=== PATIENT | male | born 1945 | race Caucasian/White ===

== ENCOUNTER 2019-09-28 08:08 | Outpatient (CLI) | payer OTHER, SELFPAY ==
--- NOTE | 2019-09-28 08:22 | MM_ITS ---
WS: [id number] BILATERAL DIGITAL DIAGNOSTIC MAMMOGRAM MAMMOGRAPHY WITH CAD CLINICAL INFORMATION: LAKHWINDER BREAST NODULES COMPARISON: None. TECHNIQUE: Bilateral CC, MLO, and ML views. FINDINGS: Scattered fibroglandular tissue bilaterally. Symmetric appearing parenchymal tissue in both periareol a regions. Ultrasound is pending. ULTRASOUND BREAST BILATERAL TECHNIQUE: Ultrasound bilateral breast focused area of concern. CLINICAL INFORMATION: LAKHWINDER BREAST NODULES COMPARISON: None. FINDINGS: Ultrasound both area lateral regions. Bilateral symmetric appearing breast tissue consistent with mil d gynecomastia. No evidence of focal cystic or solid lesion. No pathologic lesions to target for biop sy. MM/[id number] IMPRESSION: BI-RADS: 2-Benign FOLLOW UP: See Report Additional management of the palpable abnormality should be based on clinical g rounds.
== END 2019-09-28 08:09 | disposition home or self-care (01) ==
LOC: RADSHAW 08:08
PROVIDERS: Family Provider Internal Medicine; PCP Internal Medicine; Visit Provider Internal Medicine
DX: N63.20 Unspecified lump in the left breast, unspecified quadrant (principal); N63.10 Unspecified lump in the right breast, unspecified quadrant
CPT/HCPCS: 76641; 77066

== ENCOUNTER 2021-01-23 20:00 | Outpatient (CLI) | payer OTHER, SELFPAY | END 2021-01-23 20:01 | disposition home or self-care (01) | LOC: SLEEP 01-24 08:50 | PROVIDERS: Family Provider Internal Medicine; PCP Internal Medicine; Visit Provider Family Medicine | DX: G47.33 Obstructive sleep apnea (adult) (pediatric) (principal) | CPT/HCPCS: 95810 ==

== ENCOUNTER 2021-09-02 20:00 | Outpatient (CLI) | payer OTHER, SELFPAY | END 2021-09-02 20:01 | disposition home or self-care (01) | LOC: SLEEP 09-03 08:44 | PROVIDERS: Family Provider Internal Medicine; PCP Internal Medicine; Visit Provider Family Medicine | DX: G47.33 Obstructive sleep apnea (adult) (pediatric) (principal) | CPT/HCPCS: 95811 ==

== ENCOUNTER 2021-09-10 13:07 | Outpatient (CLI) | payer OTHER, SELFPAY ==
--- NOTE | 2021-09-10 13:28 | MM_ITS ---
WS: [id number] BILATERAL DIGITAL DIAGNOSTIC MAMMOGRAM MAMMOGRAPHY WITH CAD CLINICAL INFORMATION: LT BREAST GYNECOMASTIA COMPARISON: September 28, 2019 TECHNIQUE: Bilateral CC, MLO, and ML views. FINDINGS: Scattered fibroglandular densities bilaterally. Bilateral palpable markers. Normal appearing breast t issue in the areas of palpable concern. Bilateral gynecomastia. Ultrasound is pending. ULTRASOUND BREAST BILATERAL TECHNIQUE: Ultrasound bilateral breast focused area of concern. CLINICAL INFORMATION: LT BREAST GYNECOMASTIA FINDINGS: Ultrasound right breast at the 10:00 and 1:00 positions and left breast at the 9:00, 10:00, and 1:00 positions in the areas of concern. Dense underlying breast tissue in the areas of concern. Dense suba reola breast tissue left greater than right compatible with gynecomastia. No cystic or solid lesions to target for biopsy. No other suspicious findings. MM/[id number] IMPRESSION: BI-RADS: 2-Benign FOLLOW UP: See Report
== END 2021-09-10 13:08 | disposition home or self-care (01) ==
PROVIDERS: PCP Internal Medicine; Visit Provider Family Medicine
DX: N62 Hypertrophy of breast (principal)
CPT/HCPCS: 76642; 77066

== ENCOUNTER 2021-12-17 07:36 | Emergency (ER) | payer OTHER, MEDICARE, SELFPAY ==
[2021-12-17] VITALS (11 sets, daily range): BP systolic 149–177; BP diastolic 96–120; PULSE 67–108; RESP 12–20; TEMP 36.7; O2SAT 89–96; BMI 30.7
--- NOTE | 2021-12-17 08:19 | ECG_ITS ---
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 Measurements Intervals [place] Rate: 94 P: UT: QRS: 63 QRSD: 88 T: 222 QT: 368 QTc: 460 Interpretive Statements ATRIAL FIBRILLATION ST DEVIATION AND MODERATE T-WAVE ABNORMALITY, CONSIDER LATERAL ISCHEMIA [-0.1+ mV T-WAVE IN I/aVL/V5/V6] ST DEVIATION AND MODERATE T-WAVE ABNORMALITY, CONSIDER INFERIOR ISCHEMIA [-0.1+ mV T-WAVE IN II/aVF] Compared to ECG 04/04/2019 16:16:48 Possible ischemia now present T-wave abnormality still present Electronically Signed On 12-17-2021 18:26:15 CDT by Janis Delacruz M.D. [id number]
--- NOTE | 2021-12-17 08:19 | CT_ITS ---
WS: [id number] CTA HEAD AND NECK TECHNIQUE: Contrast enhanced CTA of the head and neck with coronal and sagittal reformatted images an d maximum intensity projection (MIP) images. NASCET criteria utilized. CLINICAL INFORMATION: CVA COMPARISON: None. DLP: 2738.[address] scans at [facility] use at least one of these dose optimization techniques: automated e xposure control; mA and/or kV adjustment per patient size (includes targeted exams where dose is matc hed to clinical indication); or iterative reconstruction. FINDINGS: RIGHT: RIGHT common carotid artery is patent. Mild calcified atheromatous disease RIGHT carotid bulb extending into the ICA. No significant RIGHT ICA stenosis. RIGHT ICA is patent to the skull base.Retr opharyngeal course RIGHT cervical ICA. LEFT: LEFT common carotid artery is patent. Moderate calcified atheromatous disease LEFT carotid bulb extending into the ICA with less than 50% LEFT ICA stenosis. LEFT ICA is patent to the skull base. INTRACRANIAL CTA: LEFT dominant vertebral artery. Both vertebral arteries are patent. Vertebral arteries are patent to the vertebrobasilar junction. Both ICAs are patent at the skull base. Moderate calcified atheromatous disease. Normal vascularity t o the ROSA ISELA and MCA territories bilaterally. No evidence of flow-limiting stenosis. Basilar artery is p atent. Normal vascularity to the ORCHARD WORKER territory bilaterally. Moderate aortic arch atheromatous disease. Prior sternotomy. Advanced emphysematous changes in the mariely ng apices. Normal visualized dural venous sinuses. No cervical lymphadenopathy. Mild mucosal thickening ethmoid air cells. Mastoid air cells well aerated. Normal posterior nasophary nx. Normal parapharyngeal fat. CT/CT angio headneck* [id number] IMPRESSION: 1. No significant RIGHT ICA stenosis. Less than 50% LEFT ICA stenosis with mil d to moderate calcified atheromatous disease. 2. No intracranial flow limiting stenosis. 3. LEFT dominant vertebral artery. 4. Both vertebral arteries are patent. 5. No other acute findings.
--- NOTE | 2021-12-17 08:23 | CT_ITS ---
WS: [id number] CT HEAD TECHNIQUE: Noncontrast CT of the head obtained from the skullbase to the vertex. CLINICAL INFORMATION: weakness COMPARISON: None. DLP: 1009.[address] scans at [facility] use at least one of these dose optimization techniques: automated e xposure control; mA and/or kV adjustment per patient size (includes targeted exams where dose is matc hed to clinical indication); or iterative reconstruction. FINDINGS: No evidence of intracranial hemorrhage or mass effect. Ventricular system and basal cisterns are cruz nt. Moderate small vessel changes with moderate parenchymal volume loss. Chronic lacunar infarct RIGH T lateral basal ganglia. No extra-axial fluid collections. No evidence of mass or mass effect. Intrac ranial vascular calcification. Paranasal sinuses and mastoid air cells are well aerated. .Normal visualized soft tissues. CT/CT head wo con* [id number] IMPRESSION: 1. No evidence of intracranial hemorrhage or mass effect. 2. Moderate small vessel changes. Moderate parenchymal volume loss. 3. No acute intracranial findings.
--- NOTE | 2021-12-17 08:25 | ED_ITS ---
HPI - Weakness General: Chief complaint: Weakness Stated complaint: confusion/issues talking/body numbness Time Seen by Provider: 12/17/21 08:19 History of Present Illness: 76-year-old male presents due to generalized weakness. States upon waking up he had weakness all over his body improved within several minutes. Denies any previous episodes of weakness or sleep paralysis. Denies any headache. Denies any injury. Currently symptom-free denies any focal numbness weakness tingling vision change or hearing change. Denies vertigo. Denies loss of consciousness. Review of Systems Narrative: - CONSTITUTIONAL: Denies weight loss, fever and chills. - HEENT: Denies changes in vision and hearing. - RESPIRATORY: Denies SOB and cough. - CV: Denies palpitations and CP. - GI: Denies abdominal pain, nausea, vomiting and diarrhea. - : Denies dysuria and urinary frequency. - MSK: Denies myalgia and joint pain. - SKIN: Denies rash and pruritus. - NEUROLOGICAL: As above - PSYCHIATRIC: Denies suicidal ideation Physical Exam Narrative: EXAM NARRATIVE: - GENERAL: Alert and oriented x 3. No acute distress. Well-nourished. - EYES: EOMI. Anicteric. - HENT: Atraumatic, no C-spine tenderness. Moist mucous membranes. No scleral icterus. No cervical lymphadenopathy. - LUNGS: Clear to auscultation bilaterally. No accessory muscle use. Equal lung sounds bilaterally. No respiratory distress. - CARDIOVASCULAR: Regular rate and rhythm. No murmur. No JVD. - ABDOMEN: Soft, non-tender and non-distended. Negative CVA tenderness bilaterally, no rebound or guarding, negative Rogers sign. No palpable masses. - EXTREMITIES: No edema. Non-tender. - SKIN: No rashes or lesions. Warm. - NEUROLOGIC: No meningismus or focal neurological deficits. CN II-XII grossly intact. - PSYCHIATRIC: Cooperative. Appropriate mood and affect. Course Vital Signs: Vital signs: Vital Signs Temperature 98.0 F 12/17/21 08:17 Pulse Rate 85 12/17/21 11:00 Respiratory Rate 17 12/17/21 11:00 Blood Pressure 154/107 12/17/21 11:00 Pulse Oximetry 89 L 12/17/21 11:01 MDM - Weakness Medical Decision Making 76-year-old presents with diffuse weakness. States this is resolved by the time of presentation. Nonfocal neurologic exam here. CT scan of the head does not reveal any cranial hemorrhage or other acute abnormality. CTA does not reveal any large arterial occlusion. Discussed with neurology at this time do not bel ieve admission is required for MRI and that he would be safe for outpatient follow-up. Lab work does reveal significantly elevated TSH level and low free T4. Suspect hypothyroid state. However did not see any sign of myxedema coma. Prescription for levothyroxine provided. Remainder of lab work unremarkable. EKG and troponin not revealing sign of acute ischemia or other acute abnormality. Patient was also noted to be saturating 88 to 90% when sleeping but saturates well on room air when awake. States that he is on home BiPAP when he sleeps. At this time I believe patient would be safe for discharge and outpatient follow-up. Return precautions provided. Plan was reviewed with the patient who expressed understanding. Questions answered. Patient will follow up with PCP. Patient discharged in stable condition. Lab Data : 12/17/21 09:05 12/17/21 09:05 Radiology Impressions Head/Neck CTA 12/17/21 08:19 IMPRESSION: 1. No significant RIGHT ICA stenosis. Less than 50% LEFT ICA stenosis with mild to moderate calcified atheromatous disease. 2. No intracranial flow limiting stenosis. 3. LEFT dominant vertebral artery. 4. Both vertebral arteries are patent. 5. No other acute findings. Head CT 12/17/21 08:23 IMPRESSION: 1. No evidence of intracranial hemorrhage or mass effect. 2. Moderate small vessel changes. Moderate parenchymal volume loss. 3. No acute intracranial findings. Laboratory Results WBC 6.5 10^3/uL (4.0-10.0) 12/17/21 09:05 RBC 3.97 10^6/uL (4.1-5.3) L 12/17/21 09:05 Hgb 14.1 g/dL (11.7-16.6) 12/17/21 09:05 Hct 41.2 % (42.0-52.0) L 12/17/21 09:05 MCV 103.8 fl (80-94) H 12/17/21 09:05 MCH 35.5 pg (28.0-34.0) H 12/17/21 09:05 MCHC 34.2 g/dL (30.0-36.0) 12/17/21 09:05 RDW 12.7 % (12.1-15.1) 12/17/21 09:05 Plt Count 181 10^3/cmm (130-400) 12/17/21 09:05 MPV 10.6 fL (7.4-10.4) H 12/17/21 09:05 Neut % (Auto) 60.1 % 12/17/21 09:05 Lymph % (Auto) 25.7 % 12/17/21 09:05 [place] % (Auto) 7.8 % 12/17/21 09:05 Eos % (Auto) 4.9 % 12/17/21 09:05 Baso % (Auto) 0.9 % 12/17/21 09:05 Neut # (Auto) 3.92 10^3/uL (1.8-7.7) 12/17/21 09:05 Lymph # (Auto) 1.7 10^3/uL (0.8-4.8) 12/17/21 09:05 [place] # (Auto) 0.5 10^3/uL (0.2-0.9) 12/17/21 09:05 Eos # (Auto) 0.3 10^3/uL (0.0-0.8) 12/17/21 09:05 Baso # (Auto) 0.1 10^3/uL (0.0-0.1) 12/17/21 09:05 Nucleated RBC % (auto) 0 % 12/17/21 09:05 Nucleated RBCs # 0.0 /100WBC 12/17/21 09:05 Sodium 138 mmol/L (136-145) 12/17/21 09:05 Potassium 3.9 mmol/L (3.5-5.1) 12/17/21 09:05 Chloride 97 mmol/L (98-107) L 12/17/21 09:05 Carbon Dioxide 29 mmol/L (22-29) 12/17/21 09:05 Anion Gap 15.9 (5-19) 12/17/21 09:05 BUN 15 mg/dL (8-23) 12/17/21 09:05 Creatinine 1.1 mg/dL (0.7-1.2) 12/17/21 09:05 GFR Calculation Not Reportable 12/17/21 09:05 Glucose 265 mg/dL (65-115) H 12/17/21 09:05 Calculated Osmolality 296 mOsm/kg (285-295) H 12/17/21 09:05 Calcium 10.2 mg/dL (8.5-10.5) 12/17/21 09:05 Total Bilirubin 0.5 mg/dL (0.15-1.2) 12/17/21 09:05 AST 21 U/L (0-40) 12/17/21 09:05 ALT 17 U/L (0-41) 12/17/21 09:05 Alkaline Phosphatase 112 IU/L (40-130) 12/17/21 09:05 Total Protein 7.0 g/dL (6.6-8.7) 12/17/21 09:05 Albumin 4.5 g/dL (3.5-5.2) 12/17/21 09:05 Globulin 2.5 g/dL (1.3-4.6) 12/17/21 09:05 TSH 91.44 uIU/mL (0.27-4.20) H 12/17/21 09:05 Free T4 0.10 ng/dL (0.82-1.77) L 12/17/21 09:05 Urine Color Straw (Yellow) 12/17/21 08:55 Urine Appearance Clear (CLEAR) 12/17/21 08:55 Urine pH 6 (5-7) 12/17/21 08:55 Ur Specific [place] 1.015 (1.005-1.030) 12/17/21 08:55 Urine Protein Trace (Negative) 12/17/21 08:55 Urine Glucose (UA) 1+ (Normal) H 12/17/21 08:55 Urine Ketones Negative (Negative) 12/17/21 08:55 Urine Blood Neg (Negative) 12/17/21 08:55 Urine Nitrate Negative (Negative) 12/17/21 08:55 Urine Bilirubin Neg (Negative) 12/17/21 08:55 Urine Urobilinogen Norm mg/dL (Negative) 12/17/21 08:55 Ur Leukocyte Esterase Negative (Negative) 12/17/21 08:55 Urine RBC None /hpf (0-2) 12/17/21 08:55 Urine WBC Rare /hpf (0-5) 12/17/21 08:55 Ur Squamous Epith Cells Rare /hpf (0-5) 12/17/21 08:55 Amorphous Sediment Not Reportable 12/17/21 08:55 Urine Bacteria None /hpf (NONE) 12/17/21 08:55 EKG Data EKG 1: Other EKG comments: A. fib, controlled rate of 94, T wave inversions in V5 and V6, no sign of acute ischemia or other acute abnormality. Discharge Plan Discharge Patient Disposition: Home Clinical Impression: Weakness, Hypothyroidism Condition: Stable Prescriptions: New levothyroxine 25 mcg capsule 25 mcg PO DAILY Qty: 14 0RF Discharge Orders: Discharge ED (Routine); Ordered 12/17/21 Ordered By: Jovon Lugo Referrals: Yolanda Pal MD [Primary Care Provider] - 1-3 days Patient Instructions: Hypothyroidism (ED), Weakness (ED), Opioid Safety Coding Level of Care Code ED Intranet Specialist for Chg Billy
--- NOTE | 2021-12-17 09:12 | PC.NURSE ---
Patient cardiac cath lab technologist in place, normal sinus at this time.
[2021-12-17 09:16] LABS: Basophils # 0.1 10^3/uL (0.0-0.1); Basophils % 0.9 %; Eosinophils # 0.3 10^3/uL (0.0-0.8); Eosinophils % 4.9 %; Hematocrit 41.2 % (42.0-52.0); Hemoglobin 14.1 g/dL (11.7-16.6); Lymphocytes # 1.7 10^3/uL (0.8-4.8); Lymphocytes % 25.7 %; Mean Corpuscular HGB Conc 34.2 g/dL (30.0-36.0); Mean Corpuscular Hemoglobin 35.5 pg (28.0-34.0); Mean Corpuscular Volume 103.8 fl (80-94); Mean Platelet Volume 10.6 fL (7.4-10.4); Monocytes # 0.5 10^3/uL (0.2-0.9); Monocytes % 7.8 %; Neutrophils # 3.92 10^3/uL (1.8-7.7); Neutrophils % 60.1 %; Nucleated Red Blood Cells % 0 %; Platelet Count 181 10^3/cmm (130-400); Red Blood Count 3.97 10^6/uL (4.1-5.3); Red Cell Distribution Width 12.7 % (12.1-15.1); White Blood Count 6.5 10^3/uL (4.0-10.0)
[2021-12-17 09:27] LABS: Bilirubin Urine Neg (Negative); Blood Urine Neg (Negative); Glucose Urine UA 1+ (Normal); Ketones Urine Negative (Negative); Leukocyte Esterase Urine Negative (Negative); Nitrate Urine Negative (Negative); Protein Urine Trace (Negative); Specific Gravity, Urine 1.015 (1.005-1.030); Squamous Epithelial Cell Urine RARE /hpf (0-5); Urine Appearance Clear (CLEAR); Urine Color Straw (Yellow); Urobilinogen Urine Norm (Negative); WBC Urine RARE /hpf (0-5); pH Urine 6 (5-7)
--- NOTE | 2021-12-17 09:47 | PC.NURSE ---
Patient in bed, resting with eyes closed, breathing even and non-labored. No distress noted. Patient family member at bedside, she requested a snack, and was given one.
[2021-12-17 09:48] LABS: Alanine Aminotransferase 17 U/L (0-41); Albumin Level 4.5 g/dL (3.5-5.2); Alkaline Phosphatase 112 IU/L (40-130); Anion Gap 15.9 (5-19); Aspartate Amino Transferase 21 U/L (0-40); Blood Urea Nitrogen 15 mg/dL (8-23); Calcium 10.2 mg/dL (8.5-10.5); Carbon Dioxide 29 mmol/L (22-29); Chloride 97 mmol/L (98-107); Globulin 2.5 g/dL (1.3-4.6); Glucose 265 mg/dL (65-115); Osmolality Calculated 296 mOsm/kg (285-295); Potassium 3.9 mmol/L (3.5-5.1); Sodium 138 mmol/L (136-145); Thyroid Stimulating Hormone 91.44 uIU/mL (0.27-4.20); Total Bilirubin 0.5 mg/dL (0.15-1.2)
--- NOTE | 2021-12-17 09:54 | PC.NURSE ---
Placed different pulse ox probe on patient finger, patient oxygen between 90-94 on room air. Patient states that sitting up makes him feel better, he gets chest pain laying down. Patient states he is supposed to have a cpap machine at home but has not received it yet.
[2021-12-17] MEDS: iohexol 350 mg/mL 100 mL Btl IV (10:14)
[2021-12-17] MEDS: levothyroxine 25 mcg Tablet PO (12:08)
== END 2021-12-17 12:22 | disposition home or self-care (01) ==
PROVIDERS: Emergency Provider Emergency Medicine; PCP Family Medicine
DX: R53.1 Weakness (principal); E03.9 Hypothyroidism, unspecified
CPT/HCPCS: 70450; 70496; 70498; 80053; 81001; 84439; 84443; 85025; 93005; 99284; Q9967

== ENCOUNTER 2023-07-09 00:24 | Observation (INO) | payer OTHER, SELFPAY ==
[2023-07-09] VITALS (15 sets, daily range): BP systolic 114–175; BP diastolic 82–129; PULSE 76–120; RESP 20–34; TEMP 36.6–37.3; O2SAT 91–97
--- NOTE | 2023-07-09 00:33 | CTR_ITS ---
PROCEDURE INFORMATION: Exam: CT Head Without Contrast Exam date and time: 07/09/2023 12:54 AM Age: 77 years old Clinical indication: Altered mental status/memory loss; Patient HX: AMS with weakness. TECHNIQUE: Imaging protocol: Computed tomography of the head without contrast. Radiation optimization: All CT scans at this facility use at least one of these dose optimization techniques: automated exposure control; mA and/or kV adjustment per patient size (includes targeted exams where dose is matched to clinical indication); or iterative reconstruction. REPORTING DATA: Count of CT and Cardiac NM exams in prior 12 months: This patient has received 0 known CTs and 0 known cardiac nuclear medicine studies in the 12 months prior to the current study. COMPARISON: CT head wo con* [id number] 12/17/2021 8:36 AM RADIATION DOSE METRICS: Total DLP (mGy-cm): 1082.24 FINDINGS: Brain: No hemorrhage. Unremarkable white matter. No mass effect. Preserved bajwa-white interfaces. Cerebral ventricles: No ventriculomegaly. Paranasal sinuses: Visualized sinuses are unremarkable. No fluid levels. Mastoid air cells: Visualized mastoid air cells are well aerated. Bones/joints: Unremarkable. No acute fracture. Soft tissues: Unremarkable. CT/CT head wo con* [id number] IMPRESSION: No evidence of acute intracranial hemorrhage, mass effect, or edema.
--- NOTE | 2023-07-09 00:33 | XRR_ITS ---
PROCEDURE INFORMATION: Exam: XR Chest Exam date and time: 07/09/2023 12:41 AM Age: 77 years old Clinical indication: Other: Ams/ afib rvr; Prior surgery; Surgery date: 6+ months; Surgery type: Thyroid. Open heart. Stimulator; Patient HX: AMS and weakness with afib rvr; Additional info: AMS, tachycardia TECHNIQUE: Imaging protocol: Radiologic exam of the chest. Views: 1 view. COMPARISON: CR XR chest 2V* [id number] 04/04/2019 5:16 PM FINDINGS: Tubes, catheters and devices: Spinal electrodes are in place. Lungs: Lungs are hyperinflated. Clear parenchyma. Pleural spaces: No pleural effusion. No pneumothorax. Heart/Mediastinum: Stable mild cardiomegaly. Bones/joints: Prior sternotomy. XR/XR chest 1V portable [id number] IMPRESSION: Hyperinflated but clear lungs. No other acute cardiopulmonary abnormality.
--- NOTE | 2023-07-09 00:33 | ECG_ITS ---
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 Measurements Intervals [place] Rate: 120 P: 0 MS: 0 QRS: 68 QRSD: 86 T: 67 QT: 311 QTc: 440 Interpretive Statements ATRIAL FIBRILLATION WITH RAPID VENTRICULAR RESPONSE WITH ABERRANT CONDUCTION OR VENTRICULAR PREMATURE COMPLEXES VOLTAGE CRITERIA FOR LVH [MEETS CRITERIA IN ONE OF: R(aVL), S(V1), R(V5), R(V5/V6)+S(V1)] NONSPECIFIC ST & T-WAVE ABNORMALITY Compared to ECG 12/17/2021 08:50:19 Ventricular premature complex(es) now present Aberrant conduction of supraventricular beat(s) now present Left ventricular hypertrophy now present Possible ischemia no longer present T-wave abnormality still present Electronically Signed On 07-09-2023 7:08:17 CDT by Janis Delacruz M.D. [id number]
--- NOTE | 2023-07-09 00:38 | W.ED.AMS ---
HPI - Altered Mental Status General: Chief Complaint: Altered Mental Status Stated Complaint: AMS Time Seen by Provider: 07/09/23 00:35 History of Present Illness: Presents to the ER for altered mental status. Patient is on for sure why he is here and he has no complaints at this time. EMS stated when they got there his heart rate was about 180 beats a minute in A-fib with RVR rhythm they gave him 25 mg of Cardizem IV and it improved greatly. They also stated he started having PVCs about every 4 Beat but he declined any oxygen. EMS stated that his has been in the hospital for about the last month and she is the one that usually takes care of her and they are in for sure if he is taking any of his medicine at all during this time. Review of Systems General: Reports: 10 or more systems reviewed and unremarkable except in HPI and below PFSH ED PFSH: Family History Mother CAD (coronary artery disease) Father CAD (coronary artery disease) Denies family history of Clotting disorder Anesthesia complication Bleeding disorder Physical Exam Const: COMMON NORMALS: no acute distress, average body habitus, healthy appearing, alert and well nourished HENMT: COMMON NORMALS: normocephalic, atraumatic, hearing grossly normal bilaterally, external ears normal, Normal external nose present, moist oral mucous membranes and oropharynx normal HEAD & SCALP: normocephalic and atraumatic NOSE: Normal external nose present EXTERNAL EAR: Yes external ears normal Eye: COMMON NORMALS: Equal, round and reactive pupils present, EOMs intact bilaterally, conjunctivae normal and no scleral icterus CONJUNCTIVA: Yes conjunctivae normal PUPIL: Yes Equal, round and reactive pupils present Neck/C-Spine: COMMON NORMALS: full ROM, no lymphadenopathy, supple, no meningeal signs, no JVD and Thyroid normal THYROID: Thyroid normal Lymph: LYMPHATIC: no lymphadenopathy noted Chest: COMMONS NORMALS: normal inspection of the chest and normal palpation of entire chest wall Resp: COMMON NORMALS: normal respiratory effort, No retractions, No use of accessory muscles and clear to auscultation bilaterally AUSCULTATION: clear to auscultation bilaterally Cardio: COMMON NORMALS: no JVD, S1 normal heart sound present, S2 normal heart sound present, No gallops present (Cardio), No clicks present (Cardio), No murmurs present (Cardio) and No rub (Cardio); negative for regular rate (Irregularly irregular tachycardic rhythm) RATE: abnormal rate (Irregularly irregular tachycardic rhythm) HEART SOUNDS: S1 normal heart sound present and S2 normal heart sound present GI: COMMON NORMALS: Normal to inspection, nondistended, normoactive bowel sounds present, Soft to palpation, non-tender, No hepatosplenomegaly present and no masses PALPATION: Yes Soft to palpation and Yes No hepatosplenomegaly present Neuro: SENSORIUM/ORIENTATION: Yes alert MENINGEAL SIGNS: Yes no meningeal signs Course Vital Signs: Vital signs: Vital Signs Temperature 98 F 07/09/23 00:27 Pulse Rate 117 H 07/09/23 02:13 Respiratory Rate 20 H 07/09/23 02:13 Blood Pressure 163/129 07/09/23 02:13 Pulse Oximetry 95 07/09/23 02:13 Oxygen Delivery Me thod Nasal Cannula 07/09/23 00:27 Oxygen Flow Rate 2 07/09/23 00:27 MDM - Altered Mental Status Medical Decision Making Patient presents to the ER with altered mental status and A-fib with RVR. Patient was given 25 mg IV Cardizem per EMS to slow his heart rate down from 180 to about 120. Patient was started on a Cardizem drip all lab work and x-ray and CT was obtained. Cardizem drip did show his slow his heart rate down to about 120 bpm. Patient was then given 5 mg IV push of metoprolol even more to drop his heart rate down to the 80s and 90s. Lab work revealed that white blood cells was a little on the higher side of 14 platelets all of 112, BUN/creatinine slightly elevated at 32 and 1.4. Chest x-ray was essentially negative as well as head CT. BNP was elevated at 22,000 troponin was elevated slightly at 41 although patient denied chest pain. Urinalysis and urine drug screen are pending. Dr. Grissom was consulted who agreed to the patient to CSU for further evaluation testing. Medical Records I reviewed the patient's medical records. Lab Data I reviewed the patient's lab results. 07/09/23 00:48 07/09/23 00:48 Radiology Impressions Chest X-Ray 07/09/23 00:33 IMPRESSION: Hyperinflated but clear lungs. No other acute cardiopulmonary abnormality. Head CT 07/09/23 00:33 IMPRESSION: No evidence of acute intracranial hemorrhage, mass effect, or edema. Laboratory Results WBC 14.15 10^3/uL (3.29-11.43) H 07/09/23 00:48 RBC 3.98 10^6/uL (3.85-5.65) 07/09/23 00:48 Hgb 13.50 g/dL (11.27-16.99) 07/09/23 00:48 Hct 43.9 % (37-53) 07/09/23 00:48 MCV 110.3 fl (82-101) H 07/09/23 00:48 MCH 33.9 pg (27-33) H 07/09/23 00:48 MCHC 30.8 g/dL (30-55) 07/09/23 00:48 RDW 12.4 % (12.1-15.1) 07/09/23 00:48 Plt Count 112 10^3/cmm (157-399) L 07/09/23 00:48 MPV 12.6 fL (7.4-10.4) H 07/09/23 00:48 Neut % (Auto) 87.4 % 07/09/23 00:48 Lymph % (Auto) 4.4 % 07/09/23 00:48 [place] % (Auto) 7.6 % 07/09/23 00:48 Eos % (Auto) 0.0 % 07/09/23 00:48 Baso % (Auto) 0.2 % 07/09/23 00:48 Neut # (Auto) 12.37 10^3/uL (1.8-7.7) H 07/09/23 00:48 Lymph # (Auto) 0.6 10^3/uL (0.8-4.8) L 07/09/23 00:48 [place] # (Auto) 1.1 10^3/uL (0.2-0.9) H 07/09/23 00:48 Eos # (Auto) 0.0 10^3/uL (0.0-0.8) 07/09/23 00:48 Baso # (Auto) 0.0 10^3/uL (0.0-0.1) 07/09/23 00:48 Nucleated RBC % (auto) 0 % 07/09/23 00:48 Nucleated RBCs # 0.0 /100WBC 07/09/23 00:48 PT 15.80 SECONDS (12.1-14.9) H 07/09/23 00:48 INR 1.22 (0.8-1.2) H 07/09/23 00:48 Sodium 140 mmol/L (136-145) 07/09/23 00:48 Potassium 4.3 mmol/L (3.5-5.1) 07/09/23 00:48 Chloride 103 mmol/L (98-107) 07/09/23 00:48 Carbon Dioxide 25 mmol/L (22-29) 07/09/23 00:48 Anion Gap 16.3 (5-19) 07/09/23 00:48 BUN 32 mg/dL (8-23) H 07/09/23 00:48 Creatinine 1.4 mg/dL (0.7-1.2) H 07/09/23 00:48 GFR Calculation Not Reportable 07/09/23 00:48 Glucose 273 mg/dL (65-115) H 07/09/23 00:48 Calculated Osmolality 307 mOsm/kg (285-295) H 07/09/23 00:48 Calcium 9.5 mg/dL (8.5-10.5) 07/09/23 00:48 Magnesium 2.1 mg/dL (1.7-2.3) 07/09/23 00:48 Total Bilirubin 1.2 mg/dL (0.15-1.2) 07/09/23 00:48 AST 25 U/L (0-40) 07/09/23 00:48 ALT 37 U/L (0-41) 07/09/23 00:48 Alkaline Phosphatase 88 U/L (40-130) 07/09/23 00:48 Creatine Kinase 23 U/L (39-308) L 07/09/23 00:48 Troponin T Baseline 41 ng/L (0-15) H 07/09/23 00:48 NT-Pro-B Natriuret Pep 14794 pg/mL (0-450) H 07/09/23 00:48 Total Protein 6.3 g/dL (6.6-8.7) L 07/09/23 00:48 Albumin 3.9 g/dL (3.5-5.2) 07/09/23 00:48 Globulin 2.4 g/dL (1.3-4.6) 07/09/23 00:48 TSH 0.64 uIU/mL (0.27-4.20) 07/09/23 00:48 All radiology interpretation(s) finalized by discharge Discharge Plan Discharge Patient Disposition: Admitted As Inpatient Clinical Impression: Altered mental status, Atrial fibrillation with rapid ventricular response, Thrombocytopenia, Acute kidney insufficiency Condition: Stable Prescriptions: No Action levothyroxine 25 mcg capsule 25 mcg PO DAILY Qty: 14 0RF Referrals: Yolanda Pal MD [Primary Care Provider] - Patient Instructions: Hyponatremia (ED), Benzodiazepine Use Disorder (ED), Dementia (ED), Non-diabetic Hypoglycemia (ED), Hypoglycemia in a Person with Diabetes (ED), Concussion (ED), Alcohol Intoxication (ED), Subarachnoid Hemorrhage (GEN), Altered Mental Status (ED) Coding Level of Care Code ED Electrochemist for Roberta Cervantes
[2023-07-09 01:03] LABS: Basophils % 0.2 %; Hematocrit 43.9 % (37-53); Lymphocytes # 0.6 10^3/uL (0.8-4.8); Lymphocytes % 4.4 %; Mean Corpuscular HGB Conc 30.8 g/dL (30-55); Mean Corpuscular Hemoglobin 33.9 pg (27-33); Mean Corpuscular Volume 110.3 fl (82-101); Mean Platelet Volume 12.6 fL (7.4-10.4); Monocytes # 1.1 10^3/uL (0.2-0.9); Monocytes % 7.6 %; Neutrophils # 12.37 10^3/uL (1.8-7.7); Neutrophils % 87.4 %; Nucleated Red Blood Cells % 0 %; Platelet Count 112 10^3/cmm (157-399); Red Blood Count 3.98 10^6/uL (3.85-5.65); Red Cell Distribution Width 12.4 % (12.1-15.1); White Blood Count 14.15 10^3/uL (3.29-11.43)
[2023-07-09] MEDS: dilTIAZem 100 MG in sodium chloride 0.9% (add-van) 100 ML IV (01:17)
[2023-07-09 01:20] LABS: INR 1.22 (0.8-1.2)
[2023-07-09 01:32] LABS: Troponin(5th) Baseline 41 ng/L (0-15)
[2023-07-09 01:42] LABS: Alanine Aminotransferase 37 U/L (0-41); Albumin Level 3.9 g/dL (3.5-5.2); Alkaline Phosphatase 88 U/L (40-130); Anion Gap 16.3 (5-19); Aspartate Amino Transferase 25 U/L (0-40); Blood Urea Nitrogen 32 mg/dL (8-23); Calcium 9.5 mg/dL (8.5-10.5); Carbon Dioxide 25 mmol/L (22-29); Chloride 103 mmol/L (98-107); Creatine Phosphokinase 23 U/L (39-308); Globulin 2.4 g/dL (1.3-4.6); Glucose 273 mg/dL (65-115); Magnesium 2.1 mg/dL (1.7-2.3); Osmolality Calculated 307 mOsm/kg (285-295); Potassium 4.3 mmol/L (3.5-5.1); Sodium 140 mmol/L (136-145); Thyroid Stimulating Hormone 0.64 uIU/mL (0.27-4.20); Total Bilirubin 1.2 mg/dL (0.15-1.2); Total Protein 6.3 g/dL (6.6-8.7)
[2023-07-09] MEDS: metoprolol tartrate 1 mg/1 mL SDV 5 mL 5 MG IVP (02:14)
--- NOTE | 2023-07-09 02:41 | ECG_ITS ---
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 Measurements Intervals [place] Rate: 95 P: 0 CA: 0 QRS: 71 QRSD: 82 T: 107 QT: 362 QTc: 457 Interpretive Statements ATRIAL FIBRILLATION VOLTAGE CRITERIA FOR LVH [MEETS CRITERIA IN ONE OF: R(aVL), S(V1), R(V5), R(V5/V6)+S(V1)] NONSPECIFIC ST & T-WAVE ABNORMALITY Compared to ECG 07/09/2023 00:37:57 Ventricular premature complex(es) no longer present Aberrant conduction of supraventricular beat(s) no longer present T-wave abnormality still present Electronically Signed On 07-09-2023 7:08:53 CDT by Janis Delacruz M.D. [id number]
--- NOTE | 2023-07-09 03:04 | PM.HP ---
Providers/Chief Complaint Admitting Physician: Bola Grissom Primary Care Provider: Yolanda Pal MD Chief Complaint: AMS History of Present Illness 77-year-old gentleman was brought into due to altered mental status, he appears is not clear who called the EMS but on assessment by EMS he was found to be tachycardic, heart rates into the 180s, A-fib with RVR noted on EKG. In ER he was started on Cardizem drip although heart rates without improvement despite titration up to maximum rate. Received a dose of metoprolol. After that rate started to gradually improve. He does not recall any circumstances preceding hospitalization. Unable to provide history. Provides basic review of systems, although unclear how reliable it is. States that he is cold, otherwise not having any complaints. No chest pain or pressure. No palpitations. He tells me he is at [facility], does not remember the year. He does not remember any of his medications, seems to think he might be on Eliquis for atrial fibrillation. His normally takes care of his medicines but she was not at home, per EMS states she might be in the hospital. He states she thinks she might be at her sister's place. He denies history of dementia. States he normally dresses showers by himself. Ambulates by himself, states that he has a walker. States that he uses oxygen as needed. Again, unclear how reliable any of this information is. Review of Systems Const: Reports: other (Feels cold); Denies: fever(s), body aches or malaise Eyes: Denies: change in vision ENMT: Denies: throat pain Card: Denies: chest pain, edema, pre-syncope or dyspnea on exertion Resp: Reports: non-productive cough; Denies: dyspnea, productive cough, change in phlegm color or hemoptysis GI: Denies: abdominal pain, nausea, vomiting, diarrhea, constipation, hematochezia or melena : Denies: flank pain, difficulty urinating, urinary frequency or hematuria Musc: Denies: back pain, joint swelling or joint redness Skin/Breast: Denies: rash or new lesions Neuro: Reports: confusion; Denies: headache(s), numbness in extremities, weakness in extremities, dizziness or seizure-like activity Medications/Allergies Home Medications Medication Instructions Recorded Confirmed Last Taken Type levothyroxine 25 mcg capsule 25 mcg PO DAILY #14 caps 12/17/21 Unknown Rx Allergies Allergy/AdvReac Type Severity Reaction Status Date / Time No Known Allergies Allergy Verified 01/15/22 08:34 PFSH Acute PFSH: Medical History Anemia Atherosclerosis Benign essential hypertension CAD (coronary artery disease) Chronic back pain Chronic diastolic heart failure Chronic episodic atrial fibrillation Colon polyps COPD (chronic obstructive pulmonary disease) DM type 2 (diabetes mellitus, type 2) GERD (gastroesophageal reflux disease) HTN (hypertension) Hx of rheumatic fever Hx of scarlet fever Iatrogenic hypotension Mixed hyperlipidemia RLS (restless legs syndrome) Seizures Shortness of breath Surgical History History of back surgery x 3 Hx of endovascular stent graft for abdominal aortic aneurysm Hx of thyroidectomy Family History Mother CAD (coronary artery disease) Father CAD (coronary artery disease) Denies family history of Clotting disorder Anesthesia complication Bleeding disorder Social History Smoking and tobacco/nicotine status: former use of tobacco/nicotine Lives independently: No Marital status: Vitals/I&O/Wt Last Vital Signs Temp 98 F 07/09/23 00:27 Pulse 91 07/09/23 02:56 Resp 31 H 07/09/23 02:56 BP 132/106 07/09/23 02:56 Pulse Ox 95 07/09/23 02:56 O2 Del Method Nasal Cannula 07/09/23 00:27 O2 Flow Rate 2 07/09/23 00:27 07/08/23 07/08/23 07/09/23 14:59 22:59 06:59 Intake Total 13.458 / 13.458 Balance 13.458 / 13.458 Physical Exam Const: COMMON NORMALS: alert GENERAL APPEARANCE: cooperative ORIENTATION/CONSCIOUSNESS: Yes awake, Yes oriented to person and Yes oriented to place; not oriented to time HENMT: COMMON NORMALS: oropharynx normal Neck/C-Spine: COMMON NORMALS: no JVD Resp: COMMON NORMALS: normal respiratory effort and clear to auscultation bilaterally AUSCULTATION: clear to auscultation bilaterally Cardio: COMMON NORMALS: no JVD, regular rhythm, S1 normal heart sound present, S2 normal heart sound present and No murmurs present (Cardio) RATE: tachycardic RHYTHM: abnormal rhythm irregularly irregular HEART SOUNDS: S1 normal heart sound present and S2 normal heart sound present GI: COMMON NORMALS: Normal to inspection, nondistended, normoactive bowel sounds present, Soft to palpation and non-tender PALPATION: Yes Soft to palpation Extremity: COMMON NORMALS: no joint enlargement GENERAL: Yes edema (1+) Neuro: COMMON NORMALS: patient oriented x3 and moves all extremities SENSORIUM/ORIENTATION: Yes alert OTHER: He does not follow directions well, but exam appears grossly nonfocal. Skin: COMMON NORMALS: no rashes or lesions noted GENERAL SKIN EXAM: no rashes or lesions noted Data 07/09/23 00:48 07/09/23 00:48 A&P Assessment and plan (1) Atrial fibrillation with rapid ventricular response: A-fib with RVR, heart rates initially remaining in the 180s. Started on Cardizem drip, but without response despite up titration to maximum dose, started responding after receiving a dose of metoprolol. Continue Cardizem drip. Monitor blood pressures. At risk of hypotension. Add scheduled metoprolol. He does not remember any of his medications apart from seems to feel he may be on Eliquis for atrial fibrillation, and we do not have a medication list. Perhaps this may be obtained from [place] clinic in the morning. Discussed with ER physician. ER documentation reviewed. Monitor on telemetry. Reviewed potassium, magnesium, TSH. Repeat chemistry. Reviewed troponin baseline 41, 2-hour 44.8, NT proBNP reviewed, 22,866, suspect these are related to tachycardia. He denies chest pain or pressure. Complete troponin EKG series. EKG on my interpretation meeting LVH criteria. Atrial fibrillation. Nonspecific T wave abnormality in the left limb and lateral precordial leads. No acute [place] on my interpretation. Resume home medications once available. (2) Altered mental status: Acute encephalopathy, unclear baseline, he denies history of dementia. Possibly metabolic due to CONSTANZA, possibly toxic with medications which are currently unknown. History had to be obtained from ER staff history does not appear to be reliable, but he does not appear to have obvious infection although does have some leukocytosis 14.15. Reviewed chest x-ray, reviewed head CT. No evidence of acute abnormality. UA is requested, not yet collected, request straight cath for sample. He is feeling cold. He is feeling cold, some mild dry cough, with confusion, will test COVID PCR panel low suspicion for COVID is not high. Reviewed chemistry, magnesium, TSH. He does not follow directions well, exam grossly nonfocal. Unknown LKN and baseline medications. Review medications once available. Fall precautions. He is currently well redirectable, cooperative. Not trying to get a bed. Send history of seizures in the past noted in history. Currently no evidence of seizure activity. Monitor. It appears that his usually takes care of his medications, it is not clear entirely where his is currently, per EMS might be in the hospital, patient tells me he thinks he might be at her sister's place. We will request case management consultation for additional assessment of social situation and disposition planning. Qualifiers: Altered mental status type: disorientation Qualified Code(s): R41.0 - Disorientation, unspecified (3) Thrombocytopenia: Reviewed platelet level, mild thrombocytopenia noted 112. Mild leukocytosis. He is afebrile without signs of sepsis. Monitor vital signs. Recheck CBC. Follow-up medications once available. (4) Acute kidney insufficiency: CONSTANZA versus CKD, baseline creatinine unavailable. Reviewed creatinine, BUN, BUN 32, creatinine 1.4. Reviewed EKG, noted not elevated at 23. Obtain UA. Review medications once available. Reassess renal function. Reviewed of CK, noted 23. Plan Anemia: Hemoglobin noted WNL. Follow-up CBC. HTN: Currently on Cardizem drip for blood pressure not elevated. Follow-up BP. CAD: Reviewed discharge medications once available. For now we will start aspirin 81 mg daily. BB Chronic back pain CHF: Mild lower extremity edema but otherwise does not appear in exacerbation. Denies dyspnea, orthopnea. Monitor volume status. NT proBNP noted elevated but likely secondary to tachycardia. Resume home medications once available. COPD: Not in exacerbation DM2: Patient requesting Accu-Cheks, SSI, CC diet. GERD HLD RLS Seizures: No evidence of seizure activity. History of abdominal aortic aneurysm repair Hypothyroidism Other medical problems Medications are not available. He does not remember any of his home medications. [facility], see if his medications can be obtained from the clinic in the morning. Attestations Medical Necessity Statement*: Place in observation for additional assessment and management of A-fib with RVR, acute encephalopathy, CONSTANZA, thrombocytopenia and a gentleman with multiple comorbidities as above. Diagnoses Atrial fibrillation with rapid ventricular response I48.91 Altered mental status R41.0 Altered mental status type: disorientation Thrombocytopenia D69.6 Acute kidney insufficiency N28.9
[2023-07-09] MEDS: heparin 5,000 unit/mL INJ 1 mL 5000 UNIT SUBCUT ×2 (04:10→15:12)
--- NOTE | 2023-07-09 04:41 | PC.NURSE ---
Patient came to the [facility] on cardizem at 5mg/hr and 5L nc. Patient's heart rate is staying around 90-100 bpm in afib. O2 was titrated down to 3L nc and staying around 95%. Patient is pretty confused only able to tell me his name and . He seems very sleepy and not wanting to answer questions. Bed rails up x3, call light in reach, and bed alarm set.
[2023-07-09 04:58] LABS: Add Urine Microscopic? YES; Bilirubin Urine Neg (Negative); Blood Urine 2+ (Negative); Glucose Urine UA 1+ (Normal); Ketones Urine Negative (Negative); Leukocyte Esterase Urine 1+ (Negative); Nitrate Urine Negative (Negative); Protein Urine 3+ (Negative); Urine Appearance Hazy (CLEAR); Urine Color Dark Yellow (Yellow); Urobilinogen Urine 1 mg/dL (Negative); pH Urine 5 (5-7)
[2023-07-09 04:59] LABS: Add Urine Culture? Yes; Amorphous Sediment Urine 2+ /hpf; Bacteria Urine 2+ /hpf; Hyaline Casts Urine 0-4 /lpf; Mucus Urine 2+ /hpf; WBC Urine 15-25 /hpf (0-5)
[2023-07-09 05:03] LABS: Amphetamines Screen Urine Negative (Negative); Barbiturates Screen Urine Negative (Negative); Benzodiazepines Screen Urine Negative (Negative); Cocaine Screen Urine Negative (Negative); Opiate Screen Urine Negative (Negative); PCP Screen Urine Negative (Negative); THC Screen Urine Negative (Negative)
--- NOTE | 2023-07-09 06:22 | ECG_ITS ---
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 Measurements Intervals [place] Rate: 101 P: 0 [place]: 0 QRS: 75 QRSD: 84 T: 126 QT: 362 QTc: 470 Interpretive Statements ATRIAL FIBRILLATION WITH RAPID VENTRICULAR RESPONSE VOLTAGE CRITERIA FOR LVH [MEETS CRITERIA IN ONE OF: R(aVL), S(V1), R(V5), R(V5/V6)+S(V1)] ST DEVIATION AND MODERATE T-WAVE ABNORMALITY, CONSIDER LATERAL ISCHEMIA [-0.1+ mV T-WAVE IN I/aVL/V5/V6] Compared to ECG 07/09/2023 02:41:42 Possible ischemia now present T-wave abnormality still present Electronically Signed On 07-09-2023 7:08:46 CDT by Janis Delacruz M.D. [id number]
[2023-07-09 06:34] LABS: Adenovirus Not Detected (NOT DETECT); Chlamydia Pneumoniae Not Detected (NOT DETECT); Coronavirus 229E,HKU1,NL63,OC4 Not Detected (NOT DETECT); Human Metapneumovirus Not Detected (NOT DETECT); Human Rhinovirus/Enterovirus Not Detected (NOT DETECT); Influenza A Not Detected (NOT DETECT); Influenza A H1 Not Detected (NOT DETECT); Influenza A H1-2009 Not Detected (NOT DETECT); Influenza A H3 Not Detected (NOT DETECT); Influenza B Not Detected (NOT DETECT); Mycoplasma Pneumoniae Not Detected (NOT DETECT); Parainfluenza Virus Type 1 Not Detected (NOT DETECT); Parainfluenza Virus Type 2 Not Detected (NOT DETECT); Parainfluenza Virus Type 3 Not Detected (NOT DETECT); Parainfluenza Virus Type 4 Not Detected (NOT DETECT); Respiratory Syncytial Virus A Not Detected (NOT DETECT); Respiratory Syncytial Virus B Not Detected (NOT DETECT); SARS-COV-2 Not Detected (NOT DETECT)
[2023-07-09 06:40] LABS: Glucose Point of Care 207 mg/dL (70-110)
[2023-07-09 07:24] LABS: Troponin 5 6HR 45.79 ng/L (0-15)
[2023-07-09 07:25] LABS: Troponin 5 6HR Delta 4.79 ng/L (0-12)
[2023-07-09] MEDS: aspirin 81 mg EC Tablet PO (09:13)
[2023-07-09] MEDS: metoprolol tartrate 25 mg Tablet PO (09:13)
--- NOTE | 2023-07-09 10:48 | PM.MISC ---
Miscellaneous Note Note: Cardizem drip can be turned off Patient stating that he has history of A-fib and takes Eliquis, he is not confused at this point, very pleasant and cooperative Patient is stating that he uses oxygen on an as-needed basis at home Stating that he lives with his at home Mild signs of fluid overload S1, S2 is variable with heart rate in 90s Blood pressure stable Pleasant and cooperative Awake and alert x3 GCS 15 Wean off Cardizem Continue Eliquis adjust AV funmi blocking agent Metabolic encephalopathy resolved Nonfocal neuro exam
[2023-07-09 11:04] LABS: Glucose Point of Care 206 mg/dL (70-110)
[2023-07-09] MEDS: levothyroxine 25 mcg Tablet PO (11:40)
[2023-07-09] MEDS: acetaminophen 325 mg Tablet 650 MG PO (14:13)
[2023-07-09 17:17] LABS: Glucose Point of Care 147 mg/dL (70-110)
[2023-07-09] MEDS: apixaban 5 mg Tablet PO (20:43)
[2023-07-09] MEDS: metoprolol tartrate 50 mg Tablet PO (20:43)
[2023-07-09 21:17] LABS: Glucose Point of Care 160 mg/dL (70-110)
[2023-07-10] VITALS (11 sets, daily range): BP systolic 131–166; BP diastolic 79–107; PULSE 75–112; RESP 20–30; TEMP 37–37.3; O2SAT 92–100
[2023-07-10] MEDS: heparin 5,000 unit/mL INJ 1 mL 5000 UNIT SUBCUT (04:01)
[2023-07-10 05:03] LABS: Basophils % 0.4 %; Eosinophils # 0.1 10^3/uL (0.0-0.8); Eosinophils % 1.4 %; Hematocrit 39.5 % (37-53); Lymphocytes # 0.8 10^3/uL (0.8-4.8); Lymphocytes % 9.6 %; Mean Corpuscular HGB Conc 32.4 g/dL (30-55); Mean Corpuscular Hemoglobin 34.5 pg (27-33); Mean Corpuscular Volume 106.5 fl (82-101); Mean Platelet Volume 12.4 fL (7.4-10.4); Monocytes # 0.8 10^3/uL (0.2-0.9); Monocytes % 9.1 %; Neutrophils # 6.62 10^3/uL (1.8-7.7); Nucleated Red Blood Cells % 0 %; Platelet Count 172 10^3/cmm (157-399); Red Blood Count 3.71 10^6/uL (3.85-5.65); Red Cell Distribution Width 12.1 % (12.1-15.1); White Blood Count 8.37 10^3/uL (3.29-11.43)
[2023-07-10 05:19] LABS: Anion Gap 10.7 (5-19); Blood Urea Nitrogen 33 mg/dL (8-23); Calcium 9.5 mg/dL (8.5-10.5); Carbon Dioxide 30 mmol/L (22-29); Chloride 103 mmol/L (98-107); Glucose 141 mg/dL (65-115); Osmolality Calculated 300 mOsm/kg (285-295); Potassium 3.7 mmol/L (3.5-5.1); Sodium 140 mmol/L (136-145)
[2023-07-10 06:18] LABS: Glucose Point of Care 159 mg/dL (70-110)
[2023-07-10] MEDS: metoprolol tartrate 50 mg Tablet PO (08:10)
[2023-07-10] MEDS: apixaban 5 mg Tablet PO ×2 (08:11→20:00)
[2023-07-10] MEDS: aspirin 81 mg EC Tablet PO (08:11)
[2023-07-10] MEDS: levothyroxine 25 mcg Tablet PO (08:11)
--- NOTE | 2023-07-10 10:00 | PC.NURSE ---
Pt fell while trying to use the urinal. Pt's room mate (who was lying in bed with his CPAP on and curtain closed) called the nurses station to let us know that the he thought the pt had fallen. We went into the room and found pt on the floor. Pt denies having any pain and was assisted back up to the bed. The hospitalist was notified and attempts were made to call the pt's but her phone will not accept any voice messages at this time. The pt was assisted back to bed and a 3rd bed rail was used along with ensuring that the bed alarm was set.
--- NOTE | 2023-07-10 10:18 | P.PN_ITS ---
Subjective Subjective: Patient is hypertensive with A-fib RVR Given IV Cardizem today Med rec done today as well Vitals/I&O/Wt Last Vital Signs Temp 98.7 F 07/10/23 07:41 Pulse 108 H 07/10/23 07:41 Resp 26 H 07/10/23 07:41 BP 166/107 07/10/23 07:41 Pulse Ox 99 07/10/23 07:41 O2 Del Method Nasal Cannula 07/10/23 07:41 O2 Flow Rate 2 07/09/23 16:00 07/09/23 07/10/23 07/10/23 22:59 06:59 14:59 Intake Total 397.042 / 757.042 360 / 360 Output Total 250 / 250 250 / 500 Balance 147.042 / 507.042 -250 / 257.042 360 / 360 Weight last 48 hrs Weight 85.23 kg Physical Exam Narrative: This morning patient is in A-fib RVR Signs of CHF present Currently on 3 L Hypertensive with RVR Awake and alert No sign of confusion Nonfocal neuro exam Pleasant and cooperative Data 07/10/23 04:46 07/10/23 04:46 A&P Assessment and plan (1) Altered mental status: Qualifiers: Altered mental status type: disorientation Qualified Code(s): R41.0 - Disorientation, unspecified (2) Atrial fibrillation with rapid ventricular response: (3) Thrombocytopenia: (4) Acute kidney insufficiency: (5) CHF exacerbation: Plan A-fib RVR CHF exacerbation, EF is unknown at this point Add Lasix Increase the dose of metoprolol, added digoxin which is his home medication Added Eliquis as well Metabolic encephalopathy resolved Replenish potassium Continue levothyroxine home regimen Metoprolol dose has been increased today Will request echo CONSTANZA likely cardiorenal anticipate improvement with diuresis Acute on chronic hypoxia patient is stating that he uses 2 L of oxygen on as- needed basis most at nighttime currently on 3 L Attestations Medical Necessity Statement*: Continue medical management Diagnoses Altered mental status R41.0 Altered mental status type: disorientation Atrial fibrillation with rapid ventricular response I48.91 Thrombocytopenia D69.6 Acute kidney insufficiency N28.9 CHF exacerbation I50.9
--- NOTE | 2023-07-10 10:24 | USCV_ITS ---
Jerson Hatch Age: 77 Gender: M : 1945 Exam Date: 07/10/2023 12:15 Ordering Phys: Emmie Marin MD Technologist: Trenton Long [place] [facility] [place]: chf BP: 148 / 107 HR: 95 Rhythm: Sinus Technical Quality: Adequate MEASUREMENTS (Male / Female) Normal Values 2D ECHO LVOT Diameter 2.1 cm LV Ejection Fraction MOD 2C 40.9 % LV Ejection Fraction 2C AL 41.3 % LA Diameter 4.2 cm LA Width 3.9 cm LA Height 5.7 cm RA Width 3.7 cm RA Height 5.2 cm Aorta at Sinotubular Diameter 2.3 cm IVC Diameter 1.5 cm M-MODE Aortic Annulus Diameter 3.2 cm LA Ao Ratio MM 1.4 MV E Point Septal Separation 0.9 cm DOPPLER AV Peak Velocity 108.0 cm/s LVOT Peak Velocity 91.0 cm/s AV Area Cont Eq vti 2.3 cm squared AV Area Cont Eq pk 2.8 cm squared MV Peak Velocity 139.0 cm/s MV Area PHT 6.7 cm squared Mitral E to A Ratio 5.2 MV E' Velocity 56.5 cm/s Mitral E to LV E' Lateral Ratio 9.6 TR Peak Velocity 267.1 cm/s TR Peak Gradient 28.5 mmHg TR Mean Velocity 221.4 cm/s TR Mean Gradient 22.6 mmHg TR Velocity Time Integral 72.9 cm Right Atrial Pressure 3.0 mmHg Pulmonary Artery Systolic Pressu 31.5 mmHg PV Peak Velocity 76.0 cm/s RV Acceleration Time 0.1 s RV Ejection Time 0.2 s RV AcT/ET 0.3 FINDINGS Left Ventricle Left ventricle is normal in size. LV systolic function is mildly reduced with EF of 45 to 50%. Mild global hypokinesis seen. Right Ventricle Normal in size and function Right Atrium Normal in size Left Atrium Dilated Mitral Valve Structurally normal mitral valve. Mild to moderate mitral regurgitation Aortic Valve Structurally normal aortic valve. No significant stenosis. Mild aortic regurgitation. Tricuspid Valve Mild tricuspid regurgitation. Insufficient TR jet to calculate RVSP Pulmonic Valve Not well-visualized Pericardium Normal Aorta Normal in size IVC Appears to be normal CONCLUSIONS LV systolic function is mildly reduced with EF of 45 to 50%. Left atrial dilation. Mild to moderate mitral regurgitation. Mild aortic regurgitation. Mild tricuspid regurgitation. Compared to prior echocardiogram from 2018, LV systolic function is mildly decreased and patient has mild aortic regurgitation. Clive Freitas MD (Electronically Signed) Final Date: 10 July 2023 13:07 S
[2023-07-10] MEDS: lisinopril 10 mg Tablet PO (12:59)
[2023-07-10] MEDS: potassium chloride ER 20 mEq Tablet 40 MEQ PO (12:59)
[2023-07-10] MEDS: FUROsemide 10 mg/mL SDV 2mL 20 MG IVP (13:00)
[2023-07-10] MEDS: digoxin 250 mcg Tablet PO (13:00)
--- NOTE | 2023-07-10 17:02 | PC.NURSE ---
is here to visit pt with their daughter. states that she is living with her daughter for now in [place] because she is to have knee surgery next month and that [place] is much closer than where they live in [place]. was notified that the pt fell this morning and when I told her that I tried calling that her phone would not allow me to leave a message. informed me that her phone number is different that what was listed and said that the number listed is the pt's cell phone number. She informed me that her number was [phone]. Also, pt states that the pt will need to be placed in a SNF upon discharge and wnted to know who to talk to about that. I informed that that she will need to speak to Case management on Wednesday.
[2023-07-10] MEDS: metoprolol tartrate 50 mg Tablet 100 MG PO (20:00)
[2023-07-10 20:18] LABS: Glucose Point of Care 170 mg/dL (70-110)
[2023-07-10] MEDS: acetaminophen 325 mg Tablet 650 MG PO (22:25)
[2023-07-10 23:24] LABS: Glucose Point of Care 163 mg/dL (70-110)
[2023-07-11] VITALS (9 sets, daily range): BP systolic 111–147; BP diastolic 73–90; PULSE 73–96; RESP 16–30; TEMP 36.6; O2SAT 86–99
[2023-07-11 03:15] LABS: Basophils % 0.3 %; Eosinophils # 0.2 10^3/uL (0.0-0.8); Eosinophils % 2.3 %; Lymphocytes # 0.9 10^3/uL (0.8-4.8); Lymphocytes % 13.9 %; Mean Corpuscular HGB Conc 32.6 g/dL (30-55); Mean Corpuscular Volume 104.1 fl (82-101); Mean Platelet Volume 12.1 fL (7.4-10.4); Monocytes # 0.8 10^3/uL (0.2-0.9); Monocytes % 12.1 %; Neutrophils # 4.71 10^3/uL (1.8-7.7); Neutrophils % 70.9 %; Nucleated Red Blood Cells % 0 %; Platelet Count 198 10^3/cmm (157-399); Red Blood Count 3.65 10^6/uL (3.85-5.65); White Blood Count 6.63 10^3/uL (3.29-11.43)
[2023-07-11 03:38] LABS: Anion Gap 9.7 (5-19); Blood Urea Nitrogen 31 mg/dL (8-23); Calcium 9.3 mg/dL (8.5-10.5); Carbon Dioxide 32 mmol/L (22-29); Chloride 100 mmol/L (98-107); Glucose 158 mg/dL (65-115); Osmolality Calculated 296 mOsm/kg (285-295); Potassium 3.7 mmol/L (3.5-5.1); Sodium 138 mmol/L (136-145)
[2023-07-11] MEDS: levothyroxine 137 mcg Tablet PO (09:04)
[2023-07-11] MEDS: digoxin 250 mcg Tablet PO (09:04)
[2023-07-11] MEDS: metoprolol tartrate 50 mg Tablet 100 MG PO ×2 (09:04→20:43)
[2023-07-11] MEDS: apixaban 5 mg Tablet PO ×2 (09:04→20:43)
[2023-07-11] MEDS: lisinopril 10 mg Tablet PO (09:04)
--- NOTE | 2023-07-11 09:16 | PM.PN ---
Subjective Subjective: Patient is endorsing feeling better Patient is stating that he felt dizzy and fell yesterday Feeling better today Currently on 2 L Heart rate fluctuating between 80-1 05 Blood pressure is stable Vitals/I&O/Wt Last Vital Signs Temp 99.2 F 07/10/23 23:28 Pulse 83 07/11/23 09:04 Resp 23 H 07/11/23 04:00 BP 139/80 07/11/23 04:00 Pulse Ox 99 07/11/23 04:00 O2 Del Method Nasal Cannula 07/11/23 04:00 O2 Flow Rate 2 07/11/23 04:00 07/10/23 07/11/23 07/11/23 22:59 06:59 14:59 Intake Total 720 / 1440 240 / 1680 Output Total 500 / 1300 150 / 1450 Balance 220 / 140 90 / 230 Physical Exam Narrative: Sinus overload improving Abdomen soft S1, S2 variable Currently on 2 L GCS 15 Pleasant and cooperative Eating breakfast Nonfocal neuro exam Data 07/11/23 03:00 07/11/23 03:00 Micro: Microbiology 07/09/23 04:05 Urine Culture - Final Urine,Clean Catch A&P Assessment and plan (1) CHF exacerbation: (2) Altered mental status: Qualifiers: Altered mental status type: disorientation Qualified Code(s): R41.0 - Disorientation, unspecified (3) Atrial fibrillation with rapid ventricular response: (4) Acute kidney insufficiency: (5) Hypoxia: Plan Acute on chronic hypoxia related to CHF Today he is requiring 2 L At home he has been using 2 L on and off on as-needed basis Acute diastolic CHF exacerbation EF 45 to 50% Continue diuretics, monitor electrolyte imbalance A-fib without RVR Added digoxin Metoprolol dose was increased Eliquis continued Metabolic encephalopathy: Resolved PT evaluation is pending DNR/DNI Patient does not want to go to SNF Attestations Medical Necessity Statement*: Continue medical management, possible discharge tomorrow Diagnoses CHF exacerbation I50.9 Altered mental status R41.0 Altered mental status type: disorientation Atrial fibrillation with rapid ventricular response I48.91 Acute kidney insufficiency N28.9 Hypoxia R09.02
--- NOTE | 2023-07-11 10:26 | PC.PHAR ---
pts lluvia [phone] verified pts medications-states she sets his meds up-lluvia states the pt is only taking 2 of his meds states the pt is only taking eliquis 5mg bid and levothyroxine 137mcg daily states [facility] states the pt is suppose to be taking imdur,vitamin d 25mcg daily,diltiazam 120mg daily,digoxin 250mcg daily,metformin (maybe er) 500mg daily,fish oil,advair diskus 250-50 1p bid, lisinopril 2.5mg take 1.25mg daily and a xopenex inhaler prn pts states the pt hasnt taken those medications for over a year-states she will try to find a list of what he should be taking but states only takes the 2 meds entered right now-[facility]ed [facility] for med list of what [facility] have prescribed but [facility] is not open on weekends-
[2023-07-11] MEDS: FUROsemide 10 mg/mL SDV 4mL 40 MG IVP (11:29)
[2023-07-11 12:13] LABS: Estmated Average Glucose 123; Hemoglobin A1C 5.9 % (4.0-6.0)
[2023-07-11 12:22] LABS: Vitamin B12 445 pg/mL (232-1245)
[2023-07-12] VITALS (10 sets, daily range): BP systolic 122–150; BP diastolic 75–99; PULSE 72–97; RESP 18–25; TEMP 37–37.6; O2SAT 91–97
[2023-07-12] MEDS: acetaminophen 325 mg Tablet 650 MG PO (01:27)
[2023-07-12] MEDS: trazodone 50 mg Tablet 25 MG PO (02:59)
[2023-07-12 04:16] LABS: Basophils % 0.4 %; Eosinophils # 0.2 10^3/uL (0.0-0.8); Eosinophils % 2.4 %; Lymphocytes # 1.1 10^3/uL (0.8-4.8); Lymphocytes % 14.6 %; Mean Corpuscular HGB Conc 32.2 g/dL (30-55); Mean Corpuscular Hemoglobin 33.8 pg (27-33); Mean Corpuscular Volume 104.9 fl (82-101); Mean Platelet Volume 12.2 fL (7.4-10.4); Monocytes # 0.8 10^3/uL (0.2-0.9); Neutrophils # 5.24 10^3/uL (1.8-7.7); Neutrophils % 71.1 %; Nucleated Red Blood Cells % 0 %; Platelet Count 163 10^3/cmm (157-399); Red Blood Count 3.91 10^6/uL (3.85-5.65); Red Cell Distribution Width 11.9 % (12.1-15.1); White Blood Count 7.38 10^3/uL (3.29-11.43)
[2023-07-12 04:41] LABS: Blood Urea Nitrogen 29 mg/dL (8-23); Calcium 9.2 mg/dL (8.5-10.5); Carbon Dioxide 34 mmol/L (22-29); Chloride 98 mmol/L (98-107); Glucose 172 mg/dL (65-115); Osmolality Calculated 300 mOsm/kg (285-295); Sodium 140 mmol/L (136-145)
[2023-07-12 04:42] LABS: Anion Gap 11.9 (5-19); Potassium 3.9 mmol/L (3.5-5.1)
[2023-07-12] MEDS: levothyroxine 137 mcg Tablet PO (09:58)
[2023-07-12] MEDS: digoxin 250 mcg Tablet PO (09:58)
[2023-07-12] MEDS: metoprolol tartrate 50 mg Tablet 100 MG PO ×2 (09:59→20:44)
[2023-07-12] MEDS: FUROsemide 10 mg/mL SDV 4mL 40 MG IVP (09:59)
[2023-07-12] MEDS: apixaban 5 mg Tablet PO ×2 (09:59→20:44)
[2023-07-12] MEDS: lisinopril 10 mg Tablet PO (09:59)
--- NOTE | 2023-07-12 11:17 | P.PN_ITS ---
Subjective Subjective: Patient doing well Signs of heart failure improving Currently not on oxygen Adequate urine output PT evaluation appreciated is concerned that she wont be able to take care of him if he falls because he is noncompliant does not use oxygen or his medications, I have conveyed this concern to the patient, he is agreeable to go to rehab if needed safety and skill based pay manager updated Vitals/I&O/Wt Last Vital Signs Temp 98.6 F 07/12/23 04:00 Pulse 97 07/12/23 09:58 Resp 21 H 07/12/23 08:51 BP 150/97 07/12/23 08:51 Pulse Ox 91 07/12/23 04:00 O2 Del Method Room Air 07/12/23 04:00 O2 Flow Rate 2 07/11/23 04:00 07/11/23 07/12/23 07/12/23 22:59 06:59 14:59 Intake Total 240 / 960 240 / 240 Output Total 500 / 1225 150 / 1375 300 / 300 Balance -260 / -265 -150 / -415 -60 / -60 Physical Exam Narrative: Patient is awake and alert Signs of fluid load improving A-fib without RVR Currently on room air Pleasant cough GCS 15 S1, S2 variable Data 07/12/23 03:28 07/12/23 03:28 Micro: Microbiology 07/09/23 04:05 Urine Culture - Final Urine,Clean Catch A&P Assessment and plan (1) Hypoxia: (2) CHF exacerbation: (3) Altered mental status: Qualifiers: Altered mental status type: disorientation Qualified Code(s): R41.0 - Disorientation, unspecified (4) Atrial fibrillation with rapid ventricular response: (5) Acute kidney insufficiency: Plan A-fib RVR: Improved with digoxin and use of metoprolol Continue Eliquis Diastolic CHF exacerbation continue diuresis Continue IV Lasix Signs of fluid load improving Chronic hypoxia patient uses 2 to 3 L of oxygen on as-needed basis at home DNR/DNI Social dynamics are complicated, discussed with outsole caser Appreciate PT recommendations No need to repeat labs for tomorrow Creatinine stable at 1.3 Patient fell over the weekend attributing his symptoms to dizziness did well with PT however is concerned that she will improve take care of him because he is noncompliant and she is going for a knee surgery Attestations Medical Necessity Statement*: Continue medical management Diagnoses Hypoxia R09.02 CHF exacerbation I50.9 Altered mental status R41.0 Altered mental status type: disorientation Atrial fibrillation with rapid ventricular response I48.91 Acute kidney insufficiency N28.9
--- NOTE | 2023-07-12 11:56 | PC.SOCIAL ---
IMM Update pg 2 of IMM not updated w/ patient @ this time as he is currently in observation status.
[2023-07-13] VITALS (12 sets, daily range): BP systolic 105–117; BP diastolic 68–87; PULSE 67–109; RESP 14–27; TEMP 36.3–37.4; O2SAT 87–96
[2023-07-13] MEDS: acetaminophen 325 mg Tablet 650 MG PO ×2 (04:21→15:18)
--- NOTE | 2023-07-13 04:27 | PC.NURSE ---
At 0400 vitals patient had a slight temp of 99.3. Tylenol given from PRN meds.
[2023-07-13] MEDS: levothyroxine 137 mcg Tablet PO (08:52)
[2023-07-13] MEDS: digoxin 250 mcg Tablet PO (08:52)
[2023-07-13] MEDS: FUROsemide 10 mg/mL SDV 4mL 40 MG IVP (08:52)
[2023-07-13] MEDS: metoprolol tartrate 50 mg Tablet 100 MG PO ×2 (08:52→23:19)
[2023-07-13] MEDS: lisinopril 10 mg Tablet PO (08:52)
[2023-07-13] MEDS: apixaban 5 mg Tablet PO ×2 (08:53→23:19)
--- NOTE | 2023-07-13 11:44 | PM.PN ---
Subjective Subjective: Patient doing well Awaiting placement Negative fluid balance Currently on room air Heart rate stable Vitals/I&O/Wt Last Vital Signs Temp 99.3 F 07/13/23 04:19 Pulse 79 07/13/23 11:39 Resp 23 H 07/13/23 11:39 BP 111/82 07/13/23 11:39 Pulse Ox 95 07/13/23 04:19 O2 Del Method Room Air 07/12/23 23:49 O2 Flow Rate 2 07/12/23 21:11 07/12/23 07/13/23 07/13/23 22:59 06:59 14:59 Intake Total 240 / 480 Output Total 300 / 1550 500 / 2050 200 / 200 Balance -60 / -1070 -500 / -1570 -200 / -200 Physical Exam Narrative: Awake and alert A-fib without RVR Blood pressure stable Currently on room air Pleasant cooperative GCS 15 Sign of fluid load improving Skin showing wrinkling EOMI, PERRLA Nonfocal neuro exam Data 07/12/23 03:28 07/12/23 03:28 A&P Assessment and plan (1) Hypoxia: (2) CHF exacerbation: (3) Altered mental status: Qualifiers: Altered mental status type: disorientation Qualified Code(s): R41.0 - Disorientation, unspecified (4) Atrial fibrillation with rapid ventricular response: (5) Thrombocytopenia: (6) Acute kidney insufficiency: Plan A-fib RVR: Resolved Continue Eliquis and metoprolol Diastolic CHF exacerbation: Improving Chronic hypoxia will need 2 to 3 L on exertion DNR/DNI Agreeable to go to rehab Appreciate PT recommendations No need to repeat labs Attestations Medical Necessity Statement*: Awaiting placement Diagnoses Hypoxia R09.02 CHF exacerbation I50.9 Altered mental status R41.0 Altered mental status type: disorientation Atrial fibrillation with rapid ventricular response I48.91 Thrombocytopenia D69.6 Acute kidney insufficiency N28.9
[2023-07-14] VITALS (8 sets, daily range): BP systolic 112–123; BP diastolic 72–80; PULSE 76–95; RESP 12–26; TEMP 36.5–36.7; O2SAT 87–97
[2023-07-14] MEDS: acetaminophen 325 mg Tablet 650 MG PO ×2 (01:39→08:31)
[2023-07-14] MEDS: trazodone 50 mg Tablet 25 MG PO (03:03)
[2023-07-14 04:34] LABS: Anion Gap 11.7 (5-19); Blood Urea Nitrogen 31 mg/dL (8-23); Calcium 9.4 mg/dL (8.5-10.5); Carbon Dioxide 34 mmol/L (22-29); Chloride 94 mmol/L (98-107); Glucose 152 mg/dL (65-115); Osmolality Calculated 292 mOsm/kg (285-295); Potassium 3.7 mmol/L (3.5-5.1); Sodium 136 mmol/L (136-145)
[2023-07-14 07:04] LABS: SARS Covid-2 Antigen Negative (Negative)
--- NOTE | 2023-07-14 08:21 | PC.SOCIAL ---
IMM Update pg 2 of IMM not updated @ this time as patient is currently in observation status.
[2023-07-14] MEDS: levothyroxine 137 mcg Tablet PO (08:30)
[2023-07-14] MEDS: potassium chloride ER 20 mEq Tablet 40 MEQ PO (08:30)
[2023-07-14] MEDS: metoprolol tartrate 50 mg Tablet 100 MG PO (08:30)
[2023-07-14] MEDS: digoxin 250 mcg Tablet PO (08:30)
[2023-07-14] MEDS: FUROsemide 20 mg Tablet PO (08:31)
[2023-07-14] MEDS: lisinopril 10 mg Tablet PO (08:31)
[2023-07-14] MEDS: apixaban 5 mg Tablet PO (08:31)
--- NOTE | 2023-07-14 09:07 | PC.NURSE ---
Pt seems to be a little more tired than usual and is refusing to take about half of his pills. Remaining pills are at bedside and informed pt that we will be back later to finish taking them when he is feeling a little better.
--- NOTE | 2023-07-14 09:58 | PM.DCS ---
Discharge Providers Date of Admission: 07/09/23 02:52 Date of Discharge: July 14, 2023 Attending Provider at Admission: Bola Grissom Attending Provider at Discharge: Emmie Marin MD Primary Care Provider: Yolanda Pal MD Diagnoses at Discharge Discharge Diagnosis (1) Hypoxia: Status: Acute (2) CHF exacerbation: Status: Acute (3) Altered mental status: Status: Acute Qualifiers: Altered mental status type: disorientation Qualified Code(s): R41.0 - Disorientation, unspecified (4) Atrial fibrillation with rapid ventricular response: Status: Acute (5) Thrombocytopenia: Status: Acute (6) Acute kidney insufficiency: Status: Acute Reason for Visit Reason for Visit: AMS Hospital Course Hospital Course 77-year-old male, noncompliant with his medications, as per the only takes levothyroxine he did not take his Eliquis digoxin or any other medication at home presented to the hospital with A-fib RVR generalized weakness and fatigue, is not able to take care of him, requested short-term rehab, patient was given IV Cardizem initially that was switched to p.o. AV funmi blocking agents, Eliquis was resumed along digoxin which improved his heart rate for his diastolic CHF exacerbation he was given IV diuretics which were switched to p.o. after 72 hours, patient uses 2 to 3 L of oxygen at nighttime, at rest he does well 96% on room air He is DNR/DNI. Did well with PT. Physical Exam Narrative: Awake and alert Euvolemic GCS 15 Currently on room air Pleasant A-fib without RVR eating breakfast Discharge Data Studies Completed and Pending Completed Studies During Hospitalization Category Date Time Status CT head wo con* [id number] Stat Cat Scan 07/09/23 00:33 Completed XR chest 1V portable [id number] Stat Exams 07/09/23 00:33 Completed CV. echo complete* [id number] Routine Ultrasound 07/10/23 10:24 Completed Radiology Impressions Chest X-Ray 07/09/23 00:33 IMPRESSION: Hyperinflated but clear lungs. No other acute cardiopulmonary abnormality. Head CT 07/09/23 00:33 IMPRESSION: No evidence of acute intracranial hemorrhage, mass effect, or edema. Laboratory Results WBC 7.38 10^3/uL (3.29-11.43) 07/12/23 03:28 RBC 3.91 10^6/uL (3.85-5.65) 07/12/23 03:28 Hgb 13.20 g/dL (11.27-16.99) 07/12/23 03:28 Hct 41.0 % (37-53) 07/12/23 03:28 MCV 104.9 fl (82-101) H 07/12/23 03:28 MCH 33.8 pg (27-33) H 07/12/23 03:28 MCHC 32.2 g/dL (30-55) 07/12/23 03:28 RDW 11.9 % (12.1-15.1) L 07/12/23 03:28 Plt Count 163 10^3/cmm (157-399) 07/12/23 03:28 MPV 12.2 fL (7.4-10.4) H 07/12/23 03:28 Neut % (Auto) 71.1 % 07/12/23 03:28 Lymph % (Auto) 14.6 % 07/12/23 03:28 [place] % (Auto) 11.0 % 07/12/23 03:28 Eos % (Auto) 2.4 % 07/12/23 03:28 Baso % (Auto) 0.4 % 07/12/23 03:28 Neut # (Auto) 5.24 10^3/uL (1.8-7.7) 07/12/23 03:28 Lymph # (Auto) 1.1 10^3/uL (0.8-4.8) 07/12/23 03:28 [place] # (Auto) 0.8 10^3/uL (0.2-0.9) 07/12/23 03:28 Eos # (Auto) 0.2 10^3/uL (0.0-0.8) 07/12/23 03:28 Baso # (Auto) 0.0 10^3/uL (0.0-0.1) 07/12/23 03:28 Nucleated RBC % (auto) 0 % 07/12/23 03:28 Nucleated RBCs # 0.0 /100WBC 07/12/23 03:28 PT 15.80 SECONDS (12.1-14.9) H 07/09/23 00:48 INR 1.22 (0.8-1.2) H 07/09/23 00:48 Sodium 136 mmol/L (136-145) 07/14/23 04:05 Potassium 3.7 mmol/L (3.5-5.1) 07/14/23 04:05 Chloride 94 mmol/L (98-107) L 07/14/23 04:05 Carbon Dioxide 34 mmol/L (22-29) H 07/14/23 04:05 Anion Gap 11.7 (5-19) 07/14/23 04:05 BUN 31 mg/dL (8-23) H 07/14/23 04:05 Creatinine 1.3 mg/dL (0.7-1.2) H 07/14/23 04:05 GFR Calculation Not Reportable 07/14/23 04:05 Glucose 152 mg/dL (65-115) H 07/14/23 04:05 POC Glucose 163 mg/dL (70-110) H 07/10/23 23:19 Estimat Average Glucose 123 07/11/23 03:00 Hemoglobin A1c 5.9 % (4.0-6.0) 07/11/23 03:00 Calculated Osmolality 292 mOsm/kg (285-295) 07/14/23 04:05 Calcium 9.4 mg/dL (8.5-10.5) 07/14/23 04:05 Magnesium 2.1 mg/dL (1.7-2.3) 07/09/23 00:48 Total Bilirubin 1.2 mg/dL (0.15-1.2) 07/09/23 00:48 AST 25 U/L (0-40) 07/09/23 00:48 ALT 37 U/L (0-41) 07/09/23 00:48 Alkaline Phosphatase 88 U/L (40-130) 07/09/23 00:48 Creatine Kinase 23 U/L (39-308) L 07/09/23 00:48 Troponin T Baseline 41 ng/L (0-15) H 07/09/23 00:48 Troponin T 120 Minute 44.80 ng/L (0-15) H 07/09/23 02:12 Delta Troponin T 3.80 ABS# (0-10) 07/09/23 02:12 Troponin T Hi Sens 6Hr 45.79 ng/L (0-15) H 07/09/23 06:46 Troponin T Hi Sens 6Hr Delta 4.79 ng/L (0-12) 07/09/23 06:46 NT-Pro-B Natriuret Pep 75341 pg/mL (0-450) H 07/09/23 00:48 Total Protein 6.3 g/dL (6.6-8.7) L 07/09/23 00:48 Albumin 3.9 g/dL (3.5-5.2) 07/09/23 00:48 Globulin 2.4 g/dL (1.3-4.6) 07/09/23 00:48 Vitamin B12 445 pg/mL (232-1245) 07/11/23 03:00 TSH 0.64 uIU/mL (0.27-4.20) 07/09/23 00:48 Urine Color Dark yellow (Yellow) 07/09/23 04:05 Urine Appearance Hazy (CLEAR) A 07/09/23 04:05 Urine pH 5 (5-7) 07/09/23 04:05 Ur Specific [place] 1.020 (1.005-1.030) 07/09/23 04:05 Urine Protein 3+ (Negative) H 07/09/23 04:05 Urine Glucose (UA) 1+ (Normal) H 07/09/23 04:05 Urine Ketones Negative (Negative) 07/09/23 04:05 Urine Blood 2+ (Negative) H 07/09/23 04:05 Urine Nitrate Negative (Negative) 07/09/23 04:05 Urine Bilirubin Neg (Negative) 07/09/23 04:05 Urine Urobilinogen 1 mg/dL (Negative) H 07/09/23 04:05 Ur Leukocyte Esterase 1+ (Negative) H 07/09/23 04:05 Urine RBC 10-15 /hpf (0-2) H 07/09/23 04:05 Urine WBC 15-25 /hpf (0-5) H 07/09/23 04:05 Ur Squamous Epith Cells None /hpf (0-5) 07/09/23 04:05 Ur Transition Epith Cell 5-10 /hpf 07/09/23 04:05 Amorphous Sediment 2+ /hpf 07/09/23 04:05 Urine Bacteria 2+ /hpf (NONE) H 07/09/23 04:05 Hyaline Casts 0-4 /lpf H 07/09/23 04:05 Urine Mucus 2+ /hpf 07/09/23 04:05 Urine Opiates Screen Negative ng/mL (Negative) 07/09/23 04:05 Ur Barbiturates Screen Negative ng/mL (Negative) 07/09/23 04:05 Ur Phencyclidine Scrn Negative ng/mL (Negative) 07/09/23 04:05 Ur Amphetamines Screen Negative ng/mL (Negative) 07/09/23 04:05 U Benzodiazepines Scrn Negative ng/mL (Negative) 07/09/23 04:05 Urine Cocaine Screen Negative ng/mL (Negative) 07/09/23 04:05 U Marijuana (THC) Screen Negative ng/mL (Negative) 07/09/23 04:05 Coronavirus 229E (PCR) Not detected (NOT DETECT) 07/09/23 04:05 SARS-CoV-2 (PCR) Not detected (NOT DETECT) 07/09/23 04:05 SARS-CoV-2 Ag (Rapid) Negative (Negative) 07/14/23 06:31 Vitals Last Vital Signs Temp 97.8 F 07/14/23 07:24 Pulse 94 07/14/23 08:30 Resp 26 H 07/14/23 07:24 BP 123/80 07/14/23 07:24 Pulse Ox 96 07/14/23 07:24 O2 Del Method Room Air 07/14/23 07:24 O2 Flow Rate 2 07/12/23 21:11 Discharge Plan Discharge Patient Disposition: Xfer SNF Condition: Stable Prescriptions: New digoxin 250 mcg (0.25 mg) Tablet 250 mcg PO DAILY Qty: 90 0RF metoprolol tartrate 50 mg Tablet 100 mg PO BID@0900,2100 Qty: 60 2RF furosemide 20 mg Tablet 20 mg PO EVERY OTHER DAY Qty: 60 0RF potassium chloride [Klor-Con M20] 20 mEq Tablet,Er Particles/Crystals 20 meq PO EVERY OTHER DAY Qty: 30 0RF amlodipine 5 mg tablet 5 mg PO DAILY Qty: 30 0RF Continued levothyroxine 137 mcg Tablet 137 mcg PO DAILY Nitrostat 0.4 mg Tablet, Sublingual 0.4 mg SUBLINGUAL Q5M PRN (Reason: Chest Pain) Rx Instructions: do not exceed 3 doses per episode Eliquis 5 mg Tablet 5 mg PO BID Qty: 60 0RF Discharge Orders: Discharge Order (Routine); Ordered 07/14/23 Ordered By: Emmie Marin Referrals: [facility] [Outside] Yolanda Pal MD [Primary Care Provider] - 3 weeks Discharge Diet: Cardiac Discharge Activity: As per PT/OT instructions Patient Instructions: Metoprolol (By mouth) (Lopressor, Toprol XL), Digoxin (By mouth), Furosemide (By mouth) (Lasix), Potassium Chloride (By mouth), Amlodipine (By mouth), Hyponatremia (ED), Benzodiazepine Use Disorder (ED), Dementia (ED), Non-diabetic Hypoglycemia (ED), Hypoglycemia in a Person with Diabetes (ED), Concussion (ED), Alcohol Intoxication (ED), Subarachnoid Hemorrhage (GEN), Altered Mental Status (ED), CHF Stoplight, Opioid Safety Activity Restrictions/Additional Instructions: Please take potassium when you take Lasix your Lasix doses every other day Monitor your blood pressure if your blood pressure is below 100/90 mmHg please do not take amlodipine If your heart rate is below 60 please do not take metoprolol Discharge Attestations Time Spent in Discharge Care*: greater than 30 min Quality Metrics Clinical Quality Measures [ No reported AMI, CVA or VTE this stay] Coding Level of Care Code Acute Code for Chg Fwd Diagnoses Hypoxia R09.02 CHF exacerbation I50.9 Altered mental status R41.0 Altered mental status type: disorientation Atrial fibrillation with rapid ventricular response I48.91 Thrombocytopenia D69.6 Acute kidney insufficiency N28.9
--- NOTE | 2023-07-14 12:54 | PC.NURSE ---
Report called to [facility] and given to Jaky Mcmahon LPN
--- NOTE | 2023-07-14 15:37 | PC.NURSE ---
Discharge Note Patient discharged to [SNF] via [w/c to medicaid transport van] accompanied by [medicaid tow car driver]. Discharge instructions reviewed with patient and/or claim service representative. Mobile pharmacy medications and/or prescriptions provided. Belongings/home medications returned.
== END 2023-07-14 15:34 | disposition skilled nursing facility (03) ==
LOC: ER 02:48 → CSU 02:59
PROVIDERS: Admitting Provider Internal Medicine; Emergency Provider Emergency Medicine; PCP Family Medicine; Visit Provider Internal Medicine
DX: R41.82 Altered mental status, unspecified (principal); I48.91 Unspecified atrial fibrillation; R09.02 Hypoxemia; D69.6 Thrombocytopenia, unspecified; I08.0 Rheumatic disorders of both mitral and aortic valves; N28.9 Disorder of kidney and ureter, unspecified; Z79.01 Long term (current) use of anticoagulants; I11.0 Hypertensive heart disease with heart failure; I50.32 Chronic diastolic (congestive) heart failure; Z99.81 Dependence on supplemental oxygen; Z66 Do not resuscitate; Z91.148 Patient's other noncompliance with medication regimen for other reason; Z91.81 History of falling; I25.10 Atherosclerotic heart disease of native coronary artery without angina pectoris; J44.9 Chronic obstructive pulmonary disease, unspecified; E11.9 Type 2 diabetes mellitus without complications; E78.2 Mixed hyperlipidemia; Z87.891 Personal history of nicotine dependence
CPT/HCPCS: 36415; 36416; 51702; 70450; 71045; 80048; 80053; 80306; 81001; 81015; 82550; 82607; 82962; 83036; 83735; 83880; 84443; 84484; 85025; 85610; 87086; 87426; 87635; 93005; 93306; 96365; 96372; 96375; 96376; 97110; 97116; 97161; 97530; 99285; A9270; G0378; J1644; J1940; J3490

== ENCOUNTER 2023-08-02 18:09 | Emergency (ER) | payer OTHER, SELFPAY ==
[2023-08-02 18:13] VITALS: BP 97/71; PULSE 54; RESP 16; TEMP 36.7; O2SAT 94; BMI 29.2
--- NOTE | 2023-08-02 18:49 | ED_ITS ---
HPI - SOB/Dyspnea General: Chief Complaint: Shortness of Breath/Dyspnea Stated Complaint: Resp distress Time Seen by Provider: 08/02/23 18:21 History of Present Illness: HPI Narrative: Patient presents to the ER via EMS. EMS states patient just recovered from COVID-pneumonia. Patient states he thinks he is getting pneumonia again. Patient states he is breathing better since he got DuoNeb on route by the EMS. Patient does have a history of respiratory distress and is currently on 2 to 3 L of oxygen at all times. Patient is alert and oriented. Patient is from a senior living. Review of Systems 2 General: Reports: 10 or more systems reviewed and unremarkable except in HPI and below PFSH ED PFSH: Medical History Acute kidney insufficiency Altered mental status Anemia Atherosclerosis Atrial fibrillation with rapid ventricular response Benign essential hypertension CAD (coronary artery disease) CHF exacerbation Chronic back pain Chronic diastolic heart failure Chronic episodic atrial fibrillation Colon polyps COPD (chronic obstructive pulmonary disease) DM type 2 (diabetes mellitus, type 2) GERD (gastroesophageal reflux disease) HTN (hypertension) Hx of rheumatic fever Hx of scarlet fever Hypoxia Iatrogenic hypotension Mixed hyperlipidemia RLS (restless legs syndrome) Seizures Shortness of breath Thrombocytopenia Surgical History History of back surgery x 3 Hx of endovascular stent graft for abdominal aortic aneurysm Hx of thyroidectomy Family History Mother CAD (coronary artery disease) Father CAD (coronary artery disease) Denies family history of Clotting disorder Anesthesia complication Bleeding disorder Social History Smoking and tobacco/nicotine status: former use of tobacco/nicotine Lives independently: No Marital status: Physical Exam Const: COMMON NORMALS: no acute distress, average body habitus, patient oriented x3, no limitations, healthy appearing, alert and well nourished HENMT: COMMON NORMALS: normocephalic, atraumatic, hearing grossly normal bilaterally, external ears normal, Normal external nose present, moist oral mucous membranes and oropharynx normal HEAD & SCALP: normocephalic and atraumatic NOSE: Normal external nose present EXTERNAL EAR: Yes external ears normal Neck/C-Spine: COMMON NORMALS: full ROM, no lymphadenopathy, supple, no meningeal signs, no JVD and Thyroid normal THYROID: Thyroid normal Chest: COMMONS NORMALS: normal inspection of the chest and normal palpation of entire chest wall Resp: COMMON NORMALS: normal respiratory effort, No retractions, No use of accessory muscles and clear to auscultation bilaterally AUSCULTATION: clear to auscultation bilaterally Cardio: COMMON NORMALS: no JVD, regular rhythm (Slightly bradycardic, irregularly irregular), S1 normal heart sound present, S2 normal heart sound present, No gallops present (Cardio), No clicks present (Cardio), No murmurs present (Cardio) and No rub (Cardio) RHYTHM: regular rhythm (Slightly bradycardic, irregularly irregular) HEART SOUNDS: S1 normal heart sound present and S2 normal heart sound present GI: COMMON NORMALS: Normal to inspection, nondistended, normoactive bowel sounds present, Soft to palpation, non-tender, No hepatosplenomegaly present and no masses PALPATION: Yes Soft to palpation and Yes No hepatosplenomegaly present Neuro: COMMON NORMALS: patient oriented x3 SENSORIUM/ORIENTATION: Yes alert MENINGEAL SIGNS: Yes no meningeal signs Course Vital Signs: Vital signs: Vital Signs Temperature 98.1 F 08/02/23 18:13 Pulse Rate 51 L 08/02/23 20:22 Respiratory Rate 22 H 08/02/23 19:12 Blood Pressure 120/47 08/02/23 20:22 Pulse Oximetry 99 08/02/23 20:22 Oxygen Delivery Me thod Nasal Cannula 08/02/23 20:22 Oxygen Flow Rate 4 08/02/23 20:22 MDM - SOB/Dyspnea Medical Decision Making Patient presents to the ER with complaints of shortness of breath. Patient just Recovering from COVID-pneumonia. Patient had chest x-ray which showed no acute findings. Patient blood work which was benign other than elevated BNP at 5425 however this is significantly lower than it was during his last hospital stay. Patient required approximately 3 L of oxygen to keep his saturations up in the 90s. Patient is on 2 to 3 L of oxygen at home. It is felt that this is acceptable. Patient be discharged back to senior living. Differential Diagnosis Unlikely acute exacerbation of chronic obstructive airways disease, congestive heart failure, community acquired pneumonia, asthma with exacerbation or pulmonary embolism Medical Records I reviewed the patient's medical records. Lab Data I reviewed the patient's lab results. 08/02/23 19:08/02/23 19: Labs/Radiology: Radiology Impressions Chest X-Ray 08/02/23 19: IMPRESSION: No acute findings. Laboratory Results WBC 6.20 10^3/uL (3.29-11.43) 08/02/23 19: RBC 3.80 10^6/uL (3.85-5.65) L 08/02/23: Hgb 12.60 g/dL (11.27-16.99) 08/02/23: Hct 38.9 % (37-53) 08/02/23: MCV 102.4 fl (82-101) H 08/02/23: MCH 33.2 pg (27-33) H 08/02/23: MCHC 32.4 g/dL (30-55) 08/02/23: RDW 13.0 % (12.1-15.1) 08/02/23: Plt Count 294 10^3/cmm (157-399) 08/02/23: MPV 11.4 fL (7.4-10.4) H 08/02/23: Neut % (Auto) 66.2 % 08/02/23: Lymph % (Auto) 19.7 % 08/02/23: Angelina % (Auto) 10.3 % 08/02/23: Eos % (Auto) 2.4 % 08/02/23 Baso % (Auto) 0.6 % 08/02/23 Neut # (Auto) 4.10 10^3/uL (1.8-7.7) 08/02/23: Lymph # (Auto) 1.2 10^3/uL (0.8-4.8) 08/02/23: Angelina # (Auto) 0.6 10^3/uL (0.2-0.9) 08/02/23: Eos # (Auto) 0.2 10^3/uL (0.0-0.8) 08/02/23: Baso # (Auto) 0.0 10^3/uL (0.0-0.1) 08/02/23 19: Nucleated RBC % (auto) 0 % 08/02/23 19: Nucleated RBCs # 0.0 /100WBC 08/02/23 19:27 Sodium 141 mmol/L (136-145) 08/02/23 19: Potassium 4.1 mmol/L (3.5-5.1) 08/02/23 19: Chloride 103 mmol/L (98-107) 08/02/23 19: Carbon Dioxide 25 mmol/L (22-29) 08/02/23 19: Anion Gap 17.1 (5-19) 08/02/23 19: BUN 27 mg/dL (8-23) H 08/02/23 19: Creatinine 1.2 mg/dL (0.7-1.2) 08/02/23 19: GFR Calculation Not Reportable 08/02/23: Glucose 133 mg/dL (65-115) H 08/02/23 19: Calculated Osmolality 299 mOsm/kg (285-295) H 08/02/23 19: Calcium 8.9 mg/dL (8.5-10.5) 08/02/23 19: Total Bilirubin 1.3 mg/dL (0.15-1.2) H 08/02/23 19: AST 29 U/L (0-40) 08/02/23 19: ALT 19 U/L (0-41) 08/02/23 19: Alkaline Phosphatase 101 U/L (40-130) 08/02/23: NT-Pro-B Natriuret Pep 5425 pg/mL (0-450) H 08/02/23 19: Total Protein 7.2 g/dL (6.6-8.7) 08/02/23 19: Albumin 3.2 g/dL (3.5-5.2) L 08/02/23: Globulin 4.0 g/dL (1.3-4.6) 08/02/23 19: Digoxin 1.0 ng/mL (0.6-1.2) 08/02/23 19:27 All radiology interpretation(s) finalized by discharge EKG Data EKG 1: I personally reviewed and interpreted this EKG as follows: EKG Interpretation Date: 08/02/23 EKG interpretation time: 18:20 Prior EKG tracings: available for review Interpretation: EKG showed ventricular rate 47 beats minute, QRS duration 81, QTc of 364, atrial fibrillation with slow ventricular response, Discharge Plan Discharge Patient Disposition: Home Clinical Impression: Congestive heart failure Qualifiers: Heart failure type: unspecified Heart failure chronicity: unspecified Qualified Code(s): I50.9 - Heart failure, unspecified Atrial fibrillation Qualifiers: Atrial fibrillation type: longstanding persistent Qualified Code(s): I48.11 - Longstanding persistent atrial fibrillation Condition: Stable Prescriptions: No Action levothyroxine 137 mcg Tablet 137 mcg PO DAILY Nitrostat 0.4 mg Tablet, Sublingual 0.4 mg SUBLINGUAL Q5M PRN (Reason: Chest Pain) Rx Instructions: do not exceed 3 doses per episode digoxin 250 mcg (0.25 mg) Tablet 250 mcg PO DAILY Qty: 90 0RF Klor-Con M20 20 mEq Tablet,Er Particles/Crystals 20 meq PO EVERY OTHER DAY Qty: 30 0RF metoprolol tartrate 50 mg Tablet 100 mg PO BID@0900,2100 Qty: 60 2RF furosemide 20 mg Tablet 20 mg PO EVERY OTHER DAY Qty: 60 0RF amlodipine 5 mg tablet 5 mg PO DAILY Qty: 30 0RF Eliquis 5 mg Tablet 5 mg PO BID Qty: 60 0RF Discharge Orders: Discharge ED (Routine); Ordered 08/02/23 Ordered By: Isaac Caceres Referrals: Yolanda Pal MD [Primary Care Provider] - 1 week Patient Instructions: Congestive Heart Failure, A-fib (Atrial Fibrillation) (ED) Activity Restrictions/Additional Instructions: Your work-up in ER was essentially benign. You are maintaining Saturation of 90+ percent on your home concentration of 2 to 3 L per nasal cannula. Please follow-up with your family physician within the next 7 to 10 days for further evaluation and treatment. If your symptoms worsen please feel free to return to the ER. Coding Level of Care Code ED Computer Peripheral Equipment Operator for Roberta Cervantes
--- NOTE | 2023-08-02 19:10 | XRR_ITS ---
PROCEDURE INFORMATION: Exam: XR Chest Exam date and time: 08/02/2023 7:13 PM Age: 77 years old Clinical indication: Shortness of breath; Prior surgery; Surgery date: 6+ months; Surgery type: Open heart stimulator; Additional info: Dyspnea TECHNIQUE: Imaging protocol: Radiologic exam of the chest. Views: 1 view. COMPARISON: CR (CHEST, ) 07/09/2023 12:41 AM FINDINGS: Tubes, catheters and devices: Stimulator leads project over the mid chest. Lungs: No consolidation. Pleural spaces: No pleural effusion. No pneumothorax. Heart/Mediastinum: No cardiomegaly. Bones/joints: Sternotomy wires noted. Visualized osseous structures are intact. XR/XR chest 1V portable [id number] IMPRESSION: No acute findings.
[2023-08-02 19:12] VITALS: PULSE 88; RESP 22; O2SAT 95
[2023-08-02 19:35] LABS: Basophils % 0.6 %; Eosinophils # 0.2 10^3/uL (0.0-0.8); Eosinophils % 2.4 %; Hematocrit 38.9 % (37-53); Lymphocytes # 1.2 10^3/uL (0.8-4.8); Lymphocytes % 19.7 %; Mean Corpuscular HGB Conc 32.4 g/dL (30-55); Mean Corpuscular Hemoglobin 33.2 pg (27-33); Mean Corpuscular Volume 102.4 fl (82-101); Mean Platelet Volume 11.4 fL (7.4-10.4); Monocytes # 0.6 10^3/uL (0.2-0.9); Monocytes % 10.3 %; Neutrophils % 66.2 %; Nucleated Red Blood Cells % 0 %; Platelet Count 294 10^3/cmm (157-399)
[2023-08-02 20:05] LABS: Alanine Aminotransferase 19 U/L (0-41); Albumin Level 3.2 g/dL (3.5-5.2); Alkaline Phosphatase 101 U/L (40-130); Anion Gap 17.1 (5-19); Aspartate Amino Transferase 29 U/L (0-40); Blood Urea Nitrogen 27 mg/dL (8-23); Calcium 8.9 mg/dL (8.5-10.5); Carbon Dioxide 25 mmol/L (22-29); Chloride 103 mmol/L (98-107); Glucose 133 mg/dL (65-115); NT Pro B Type Natriuretic Pept 5425 pg/mL (0-450); Osmolality Calculated 299 mOsm/kg (285-295); Potassium 4.1 mmol/L (3.5-5.1); Sodium 141 mmol/L (136-145); Total Bilirubin 1.3 mg/dL (0.15-1.2); Total Protein 7.2 g/dL (6.6-8.7)
[2023-08-02 20:22] VITALS: BP 120/47; PULSE 51; O2SAT 99
--- NOTE | 2023-08-02 20:36 | PC.NURSE ---
Addendum entered by Birdie Reyes RN 08/02/23 21:21: pt is normally mildly altered Original Note: spoke with pts , per pt is normally drowsy/lethargic, has cardiac hx, had thyroidectomy
--- NOTE | 2023-08-02 21:18 | PC.NURSE ---
spoke with about transfer back to [facility], had no further questions
--- NOTE | 2023-08-02 21:23 | PC.NURSE ---
this nurse spoke with Funmi at [facility] to give patient report @[phone]. per funmi pt is altered at times, wears 3L continuous at [facility]. had no further questions for this nurse.
[2023-08-02 21:37] VITALS: O2SAT 95
[2023-08-02 22:23] VITALS: PULSE 60; O2SAT 95
== END 2023-08-02 22:24 | disposition home or self-care (01) ==
PROVIDERS: Emergency Provider Emergency Medicine; PCP Family Medicine
DX: I48.11 Longstanding persistent atrial fibrillation (principal); I11.0 Hypertensive heart disease with heart failure; I50.9 Heart failure, unspecified; Z79.01 Long term (current) use of anticoagulants; Z87.891 Personal history of nicotine dependence; I25.10 Atherosclerotic heart disease of native coronary artery without angina pectoris; J44.9 Chronic obstructive pulmonary disease, unspecified; E78.2 Mixed hyperlipidemia
CPT/HCPCS: 36415; 71045; 80053; 80162; 83880; 85025; 99284

== ENCOUNTER 2023-09-26 21:48 | Emergency (ER) | payer OTHER, SELFPAY ==
[2023-09-26 21:50] VITALS: BP 129/85; PULSE 126; RESP 18; TEMP 36.8; O2SAT 98; BMI 23.4
--- NOTE | 2023-09-26 22:18 | XRR_ITS ---
PROCEDURE INFORMATION: Exam: XR Chest Exam date and time: 09/26/2023 10:27 PM Age: 77 years old Clinical indication: Patient HX: Low o2 sat; Weakness TECHNIQUE: Imaging protocol: Radiologic exam of the chest. Views: 1 view. COMPARISON: CR XR chest 1V portable [id number] 08/02/2023 7:13 PM FINDINGS: Tubes, catheters and devices: Spinal stimulator. Lungs: Emphysematous changes. Pleural spaces: Unremarkable. No pleural effusion. No pneumothorax. Heart/Mediastinum: Mild cardiomegaly. Bones/joints: Sternotomy wires. XR/XR chest 1V portable [id number] IMPRESSION: 1. Negative for infiltrate. 2. Emphysematous changes. 3. Spinal stimulator. 4. Sternotomy wires. 5. Mild cardiomegaly.
--- NOTE | 2023-09-26 22:19 | ECG_ITS ---
[facility] Test Date: 2023-09-26 Pat Name: Jerson Hatch Department: Room: Gender: Male [employer] Consultant: : [id number] Requested By: Lex Call Order Number: [id number] Maricruz MD: Clive Freitas M.D. Measurements Intervals [place] Rate: 115 P: 0 AR: 0 QRS: 62 QRSD: 78 T: 83 QT: 321 QTc: 445 Interpretive Statements ATRIAL FIBRILLATION WITH RAPID VENTRICULAR RESPONSE WITH ABERRANT CONDUCTION OR VENTRICULAR PREMATURE COMPLEXES VOLTAGE CRITERIA FOR LVH [MEETS CRITERIA IN ONE OF: R(aVL), S(V1), R(V5), R(V5/V6)+S(V1)] NONSPECIFIC ST & T-WAVE ABNORMALITY Compared to ECG 07/09/2023 06:22:13 Ventricular premature complex(es) now present Aberrant conduction of supraventricular beat(s) now present Possible ischemia no longer present T-wave abnormality still present Electronically Signed On 09-27-2023 7:54:10 TRANSPORT TRUCK DRIVER by Clive Freitas M.D. [id number]
[2023-09-26] MEDS: sodium chloride 0.9% 1,000 ML 999 ML IV (22:26)
[2023-09-26] MEDS: dilTIAZem 100 MG in sodium chloride 0.9% (add-van) 100 ML IV (22:36)
--- NOTE | 2023-09-26 22:44 | W.ED.GENADLT ---
HPI - General Adult General: Chief complaint: General Medical Stated complaint: WEAKNESS Time Seen by Provider: 09/26/23 22:05 History of Present Illness: 77-year-old male gentleman with a history of atrial fibrillation. He presents with decreased oral intake, generalized weakness. He notes that he had a cough for the last couple of days. He is mildly short of breath. His heart rate is increased. He has not been able to to take care of himself well at home. He lives at home with his . He denies fever. Denies vomiting or diarrhea. Associated symptoms: Reports dyspnea; Deny chest pain, headache(s), nausea or vomiting Review of Systems Const: Denies: fever(s) or chills ENMT: Denies: throat pain Card: Reports: irregular heart rhythm; Denies: chest pain Resp: Reports: dyspnea and non-productive cough GI: Denies: abdominal pain, nausea, vomiting or diarrhea Neuro: Reports: weakness in extremities and difficulty walking; Denies: headache(s) [facility] PFSH: Medical History Hypoxia CHF exacerbation Chronic back pain Anemia DM type 2 (diabetes mellitus, type 2) Seizures GERD (gastroesophageal reflux disease) COPD (chronic obstructive pulmonary disease) HTN (hypertension) CAD (coronary artery disease) Hx of rheumatic fever Hx of scarlet fever Benign essential hypertension Shortness of breath Chronic diastolic heart failure Chronic episodic atrial fibrillation Atherosclerosis Colon polyps Iatrogenic hypotension Mixed hyperlipidemia RLS (restless legs syndrome) Acute kidney insufficiency Thrombocytopenia Atrial fibrillation with rapid ventricular response Altered mental status Surgical History Hx of endovascular stent graft for abdominal aortic aneurysm Hx of thyroidectomy History of back surgery x 3 Family History Mother CAD (coronary artery disease) Father CAD (coronary artery disease) Denies family history of Clotting disorder Anesthesia complication Bleeding disorder Social History Smoking and tobacco/nicotine status: former use of tobacco/nicotine Lives independently: No Marital status: Physical Exam Const: GENERAL APPEARANCE: cooperative, ill appearing and frail appearing HENMT: COMMON NORMALS: normocephalic, atraumatic and Normal external nose present HEAD & SCALP: normocephalic and atraumatic FACE & SINUS: normal facial exam and face symmetric NOSE: Normal external nose present Eye: COMMON NORMALS: Equal, round and reactive pupils present and EOMs intact bilaterally PUPIL: Yes Equal, round and reactive pupils present Neck/C-Spine: GENERAL: Yes trachea midline Chest: CHEST: Yes Symmetrical chest wall rise Resp: EFFORT & INSPECTION: Yes tachypneic and Yes labored AUSCULTATION: diminished lung sounds Cardio: RATE: tachycardic RHYTHM: abnormal rhythm irregularly irregular GI: COMMON NORMALS: Normal to inspection, nondistended, normoactive bowel sounds present PALPATION: Yes Tenderness to palpation present (GI) (Mild diffuse) Extremity: GENERAL: Yes edema (1+) Neuro: MEGHANA COMA SCALE: document GCS findings [address] coma scale eye opening: Spontaneous [address] coma scale verbal response: Confused [address] coma scale motor response: Obey commands Meghana coma scale total score: 14 SENSORY EXAM: Yes extremities (intact) Skin: COMMON NORMALS: no rashes or lesions noted GENERAL SKIN EXAM: no rashes or lesions noted Course Vital Signs: Vital signs: Vital Signs Temperature 98.2 F 09/26/23 21:50 Pulse Rate 68 09/27/23 06:05 Respiratory Rate 21 H 09/27/23 06:05 Blood Pressure 131/73 09/27/23 06:05 Pulse Oximetry 95 09/27/23 06:05 Oxygen Delivery Me thod Room Air 09/27/23 05:11 Oxygen Flow Rate 0.5 09/27/23 00:13 [facility] - General Adult Medical Decision Making 77-year-old gentleman presenting in rapid atrial fibrillation. Heart rates have been as high as 150. The patient is short of breath. Diltiazem drip was started. Laboratories pending including digoxin level. Chest x-ray is negative for infiltrate. White blood cell count is 23.5. Hemoglobin is 11.7. Creatinine is 1.7 which is above his baseline. Troponin was elevated on presentation, but did not increase at 2 hours. Initial heart rate of 140-150 has decreased on diltiazem. He is now rate control, and diltiazem is turned off. Heart rate is in the 60s and 70s. Still A-fib. Blood pressure 122/75, saturations 95% on room air, respiratory rate is 22. On initial urine cath, urine was dry. With this an increase in creatinine, felt that obstruction needed to be ruled out. Noncontrast CT of the belly did not show urinary outlet obstruction. It did show what appeared to be hemorrhage in the left upper quadrant. CT of the belly with contrast was suggested. On that scan, fluid, meaning blood, it was again seen. There was also noted to be a dissection flap above the endograft that appeared to the radiologist to be chronic. 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 The hyperdense fluid in the left upper abdomen was again noted, and the radiologist went back and looked at the belly CT. It is her belief that hemorrhagic fluid is coming from a rupture of the aortic aneurysm with endoleak and acute hemorrhage in the left upper quadrant/retroperitoneal region. I spoke with vascular surgery at [facility] in [place]. He looked at the images, and notes that he will need a different type of endograft versus potentially a large repair involving cardiac surgery. He suggests transfer to [facility] for [facility]. I have spoken with vascular surgery at [facility]. They are willing to take in transfer, but the patient's significant comorbidities, length of transfer, the fact that road and weather conditions are not good for transfer, all play affect. Currently we are attempting to contact the patient's to make sure they want everything done. The patient himself has some mild dementia and may or may not fully understand the morbility and potential mortality of his acute illness. I spoke with the patient's . She wants everything possible done for the patient. She was told that if undergoing this vascular procedure/surgery there is a good chance that he may not make it through alive given his comorbidities. She has persistent that she wants everything done. The patient himself says the same. The patient is anticoagulated. I asked vascular surgery about reversing that with Andexxa. He states that if necessary they can do that when the patient gets there. [facility] has no beds currently, trying to arrange a transfer to the emergency department given the time critical nature of the patient's condition. Lab Data 09/26/23 22:55 09/26/23 22:55 Radiology Impressions Chest X-Ray 09/26/23 22:18 IMPRESSION: 1. Negative for infiltrate. 2. Emphysematous changes. 3. Spinal stimulator. 4. Sternotomy wires. 5. Mild cardiomegaly. Abdomen/Pelvis CT 09/27/23 00:53 IMPRESSION: 1. Hyperdense material is seen about the left kidney seen extending superiorly to the spleen and inferiorly to the left pelvis of uncertain etiology, suggestive of blood products. Negative for active contrast extravasation seen from the spleen or kidney to suggest a source of blood products. 2. Aorta bi-iliac graft seen with contrast in the excluded aneurysm sac along while style although left-sided without definite contrast extravasation seen to indicate leakage. Additionally a dissection flap is seen extending superiorly off the field of view into the upper abdominal and lower thoracic aorta, finding is likely chronic. 3. Right hepatic lobe sub cm cyst 4. Urinary bladder wall thickening, asymmetric on the left side, consider correlation with cystoscopy to evaluate for possible mass, infection may also be a consideration. 5. Constipation. 6. Small left pleural effusion. 7. Emphysematous changes. 8. Cardiomegaly. 9. Coronary artery atherosclerotic calcifications. 10. Hepatic steatosis. 11. Small amount of perihepatic fluid. 12. Cholelithiasis. COMMENTS: Consistent with the [employer]'s Incidental Findings Committee white paper (J Am Sherrell Radiol 2018): Any incidental renal lesion less than 1 cm or classified as too small to characterize, or any incidental cystic renal lesion characterized as simple-appearing, is likely benign. No follow-up imaging is recommended for these lesions per consensus recommendations based on imaging criteria. Chest CTA 09/27/23 03:08 IMPRESSION: 1. Type B aortic dissection. There is an endoleak filling the false lumen and compressing the true lumen of the thoracic aorta. 2. Hyperdense fluid in the left upper quadrant region with an area of abnormality noted on the prior CT abdomen pelvis on axial image 35 suggestive of a ruptured aortic aneurysm with endoleak and acute hemorrhage in the left upper quadrant/retroperitoneal region, please see prior CT abdomen pelvis study. 3. 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 COMMENTS: The presence of pulmonary emphysema on CT is an independent risk factor for lung cancer. In the absence of a history or active diagnosis of lung cancer, it is recommended that this patient with emphysema be evaluated for enrollment in a low dose CT lung cancer screening program. THIS REPORT CONTAINS FINDINGS THAT MAY BE CRITICAL TO PATIENT CARE. The findings were verbally communicated via telephone conference with Dr. Ward at 419 AM DISTRICT SALES REPRESENTATIVE on 09/27/2023. The findings were acknowledged and understood. ADDENDUM: 09/27/23 0428 Correction to section on (Upper abdomen) , should read as follows: Small dissection flap noted within the proximal superior mesenteric artery which is otherwise appears patent, please see recent contrast-enhanced CT abdomen pelvis. Recent Laboratory Results WBC 23.51 10^3/uL (3.29-11.43) H 09/26/23 22:55 RBC 3.49 10^6/uL (3.85-5.65) L 09/26/23 22:55 Hgb 11.70 g/dL (11.27-16.99) 09/26/23 22:55 Hct 35.5 % (37-53) L 09/26/23 22:55 MCV 101.7 fl (82-101) H 09/26/23 22:55 MCH 33.5 pg (27-33) H 09/26/23 22:55 MCHC 33.0 g/dL (30-55) 09/26/23 22:55 RDW 13.9 % (12.1-15.1) 09/26/23 22:55 Plt Count 325 10^3/cmm (157-399) 09/26/23 22:55 MPV 10.2 fL (7.4-10.4) 09/26/23 22:55 Neut % (Auto) 86.2 % 09/26/23 22:55 Lymph % (Auto) 3.4 % 09/26/23 22:55 [place] % (Auto) 8.6 % 09/26/23 22:55 Eos % (Auto) 0.0 % 09/26/23 22:55 Baso % (Auto) 0.2 % 09/26/23 22:55 Neut # (Auto) 20.25 10^3/uL (1.8-7.7) H 09/26/23 22:55 Lymph # (Auto) 0.8 10^3/uL (0.8-4.8) 09/26/23 22:55 [place] # (Auto) 2.0 10^3/uL (0.2-0.9) H 09/26/23 22:55 Eos # (Auto) 0.0 10^3/uL (0.0-0.8) 09/26/23 22:55 Baso # (Auto) 0.0 10^3/uL (0.0-0.1) 09/26/23 22:55 Nucleated RBC % (auto) 0 % 09/26/23 22:55 Nucleated RBCs # 0.0 /100WBC 09/26/23 22:55 PT 16.50 SECONDS (12.1-14.9) H 09/26/23 22:55 INR 1.28 (0.8-1.2) H 09/26/23 22:55 APTT 40.9 SECONDS (23.9-36.7) H 09/26/23 22:55 Sodium 136 mmol/L (136-145) 09/26/23 22:55 Potassium 4.3 mmol/L (3.5-5.1) 09/26/23 22:55 Chloride 97 mmol/L (98-107) L 09/26/23 22:55 Carbon Dioxide 23 mmol/L (22-29) 09/26/23 22:55 Anion Gap 20.3 (5-19) H 09/26/23 22:55 BUN 37 mg/dL (8-23) H 09/26/23 22:55 Creatinine 1.7 mg/dL (0.7-1.2) H 09/26/23 22:55 GFR Calculation Not Reportable 09/26/23 22:55 Glucose 219 mg/dL (65-115) H 09/26/23 22:55 Calculated Osmolality 297 mOsm/kg (285-295) H 09/26/23 22:55 Lactic Acid 4.5 mmol/L (0.5-2.2) H* 09/26/23 22:55 Lactic Acid (Sepsis) 2.3 mmol/L (0.5-2.2) H 09/27/23 02:35 Calcium 9.4 mg/dL (8.5-10.5) 09/26/23 22:55 Phosphorus 3.5 mg/dL (2.5-4.5) 09/26/23 22:55 Magnesium 2.0 mg/dL (1.7-2.3) 09/26/23 22:55 Total Bilirubin 1.7 mg/dL (0.15-1.2) H 09/26/23 22:55 AST 19 U/L (0-40) 09/26/23 22:55 ALT 14 U/L (0-41) 09/26/23 22:55 Alkaline Phosphatase 70 U/L (40-130) 09/26/23 22:55 Troponin T Baseline 81 ng/L (0-15) H 09/26/23 22:55 Troponin T 120 Minute 66.70 ng/L (0-15) H 09/27/23 01:25 Delta Troponin T -14.30 ABS# (0-10) L 09/27/23 01:25 Troponin T Hi Sens 6Hr 73.91 ng/L (0-15) H 09/27/23 05:37 Troponin T Hi Sens 6Hr Delta -7.09 ng/L (0-12) L 09/27/23 05:37 C-Reactive Protein 155.1 mg/L (0.0-4.9) H 09/26/23 22:55 NT-Pro-B Natriuret Pep 44949 pg/mL (0-450) H 09/26/23 22:55 Total Protein 6.2 g/dL (6.6-8.7) L 09/26/23 22:55 Albumin 3.5 g/dL (3.5-5.2) 09/26/23 22:55 Globulin 2.7 g/dL (1.3-4.6) 09/26/23 22:55 Urine Color Oly (Yellow) 09/27/23 00:49 Urine Appearance Cloudy (CLEAR) A 09/27/23 00:49 Urine pH 5 (5-7) 09/27/23 00:49 Ur Specific [place] 1.025 (1.005-1.030) 09/27/23 00:49 Urine Protein 3+ (Negative) H 09/27/23 00:49 Urine Glucose (UA) 1+ (Normal) H 09/27/23 00:49 Urine Ketones 1+ (Negative) H 09/27/23 00:49 Urine Blood 2+ (Negative) H 09/27/23 00:49 Urine Nitrate Negative (Negative) 09/27/23 00:49 Urine Bilirubin 1+ (Negative) H 09/27/23 00:49 Urine Urobilinogen Norm mg/dL (Negative) 09/27/23 00:49 Ur Leukocyte Esterase Negative (Negative) 09/27/23 00:49 Urine RBC 25-40 /hpf (0-2) H 09/27/23 00:49 Urine WBC 15-25 /hpf (0-5) H 09/27/23 00:49 Ur Squamous Epith Cells 0-4 /hpf (0-5) H 09/27/23 00:49 Amorphous Sediment 2+ /hpf 09/27/23 00:49 Urine Bacteria 2+ /hpf (NONE) H 09/27/23 00:49 Hyaline Casts 0-4 /lpf H 09/27/23 00:49 Fine Granular Casts 0-4 /lpf H 09/27/23 00:49 Coarse Granular Casts 5-10 /lpf H 09/27/23 00:49 Urine Mucus 1+ /hpf 09/27/23 00:49 Digoxin 1.1 ng/mL (0.6-1.2) 09/26/23 22:55 Adenovirus (PCR) Not detected (NOT DETECT) 09/26/23 22: C. pneumoniae DNA (PCR) Not detected (NOT DETECT) 09/26/23 22: Coronavirus 229E (PCR) Not detected (NOT DETECT) 09/26/23 22: Human Metapneumovir PCR Not detected (NOT DETECT) 09/26/23 22: Influenza A (H1) PCR Not detected (NOT DETECT) 09/26/23 22: Influ A (H1/09) PCR Not detected (NOT DETECT) 09/26/23 22: Influenza A (H3) PCR Not detected (NOT DETECT) 09/26/23 22: Influenza Type A (PCR) Not detected (NOT DETECT) 09/26/23 22: Influenza Type B (PCR) Not detected (NOT DETECT) 09/26/23 22: M. pneumoniae (PCR) Not detected (NOT DETECT) 09/26/23 22: Parainfluenza 1 (PCR) Not detected (NOT DETECT) 09/26/23 22: Parainfluenza 2 (PCR) Not detected (NOT DETECT) 09/26/23 22: Parainfluenza 3 (PCR) Not detected (NOT DETECT) 09/26/23 22: Parainfluenza 4 (PCR) Not detected (NOT DETECT) 01/14/24 22:27 RSV Type A (PCR) Not detected (NOT DETECT) 09/26/23 22:27 RSV Type B (PCR) Not detected (NOT DETECT) 09/26/23 22:27 Entero/Rhino (PCR) Not detected (NOT DETECT) 09/26/23 22:27 SARS-CoV-2 (PCR) Not detected (NOT DETECT) 09/26/23 22:27 All radiology interpretation(s) finalized by discharge Critical Care Time Critical Care Time: Critical Care Time: Yes Total Critical Care Time: 70 Attestation: This case had a high probability of a clinically significant, sudden, or life threatening deterioration of this patient's condition which required my full and direct attention, intervention and personal management. Time is independent of any procedures performed. 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
[2023-09-26 22:48] VITALS: BP 154/98; PULSE 113; RESP 18; O2SAT 93
[2023-09-26 23:04] LABS: Basophils % 0.2 %; Hematocrit 35.5 % (37-53); Lymphocytes # 0.8 10^3/uL (0.8-4.8); Lymphocytes % 3.4 %; Mean Corpuscular Hemoglobin 33.5 pg (27-33); Mean Corpuscular Volume 101.7 fl (82-101); Mean Platelet Volume 10.2 fL (7.4-10.4); Monocytes % 8.6 %; Neutrophils # 20.25 10^3/uL (1.8-7.7); Neutrophils % 86.2 %; Nucleated Red Blood Cells % 0 %; Platelet Count 325 10^3/cmm (157-399); Red Blood Count 3.49 10^6/uL (3.85-5.65); Red Cell Distribution Width 13.9 % (12.1-15.1); White Blood Count 23.51 10^3/uL (3.29-11.43)
[2023-09-26 23:05] VITALS: BP 153/92; PULSE 110; RESP 22; O2SAT 97
[2023-09-26 23:17] LABS: INR 1.28 (0.8-1.2)
[2023-09-26 23:18] LABS: Partial Thromboplastin Time 40.9 SECONDS (23.9-36.7)
--- NOTE | 2023-09-26 23:21 | PC.NURSE ---
BRANDY CALLED ED TO GET UPDATE ON PATIENT STATUS. THIS NURSE INFORMED THAT VARIOUS TESTS WERE BEING PERFORMED ON PATIENT AND RESULTS STILL PENDING, AND PATIENT WAS RECEIVING MEDICATIONS. NURSE TOLD THAT SHE WOULD BE CALLED WITH ANY UPDATES, AND WHETHER OR NOT PT WAS BEING ADMITTED OR DISCHARGED HOME. VERBALIZED UNDERSTANDING, HAD NO FURTHER QUESTIONS OR CONCERNS AT THIS TIME. BRANDY TO BE CALLED BACK AT [phone].
[2023-09-26 23:25] LABS: Digoxin 1.1 ng/mL (0.6-1.2); Troponin(5th) Baseline 81 ng/L (0-15)
[2023-09-26 23:26] LABS: Lactic Sepsis W/Reflex 4.5 mmol/L (0.5-2.2)
[2023-09-26 23:32] LABS: Alanine Aminotransferase 14 U/L (0-41); Albumin Level 3.5 g/dL (3.5-5.2); Alkaline Phosphatase 70 U/L (40-130); Anion Gap 20.3 (5-19); Aspartate Amino Transferase 19 U/L (0-40); Blood Urea Nitrogen 37 mg/dL (8-23); C Reactive Protein 155.1 mg/L (0.0-4.9); Calcium 9.4 mg/dL (8.5-10.5); Carbon Dioxide 23 mmol/L (22-29); Chloride 97 mmol/L (98-107); Globulin 2.7 g/dL (1.3-4.6); Glucose 219 mg/dL (65-115); Osmolality Calculated 297 mOsm/kg (285-295); Phosphorus 3.5 mg/dL (2.5-4.5); Potassium 4.3 mmol/L (3.5-5.1); Sodium 136 mmol/L (136-145); Total Bilirubin 1.7 mg/dL (0.15-1.2); Total Protein 6.2 g/dL (6.6-8.7)
[2023-09-26 23:52] LABS: NT Pro B Type Natriuretic Pept 31679 pg/mL (0-450)
[2023-09-27] VITALS (12 sets, daily range): BP systolic 121–183; BP diastolic 73–107; PULSE 68–102; RESP 18–27; O2SAT 93–99
[2023-09-27] MEDS: sodium chloride 0.9% 2,286.12 ML 2286.12 ML IV (00:03)
[2023-09-27] MEDS: piperacillin-tazobactam 4.5 GM in sodium chloride 0.9% (plus) 50 ML IV (00:04)
--- NOTE | 2023-09-27 00:16 | CTR_ITS ---
PROCEDURE INFORMATION: Exam: CT Abdomen And Pelvis Without Contrast Exam date and time: 09/27/2023 12:27 AM Age: 77 years old Clinical indication: Pain and abnormal findings; Abnormal lab test; Abnormal kidney function lab tests and elevated wbc; Abdominal pain; Generalized; Prior surgery; Surgery date: 6+ months; Surgery type: Aaa graft. Spinal stimulator; Patient HX: Abd pain with no urine output. Wbc 23k. Lactate 4.5. Solitario. ; Additional info: Abd pain, ? urinary outlet obstruction TECHNIQUE: Imaging protocol: Computed tomography of the abdomen and pelvis without contrast. Radiation optimization: All CT scans at this facility use at least one of these dose optimization techniques: automated exposure control; mA and/or kV adjustment per patient size (includes targeted exams where dose is matched to clinical indication); or iterative reconstruction. COMPARISON: CR (CHEST, ) 09/26/2023 10:27 PM RADIATION DOSE METRICS: Total DLP (mGy-cm): 583.1 FINDINGS: Lungs: Emphysematous changes. Left lower lobe atelectasis versus infiltrate. Pleural spaces: Small left pleural effusion. Coronary arteries: Coronary artery atherosclerotic calcifications. Liver: Normal. No mass. Gallbladder and bile ducts: Cholelithiasis. Pancreas: Normal. No ductal dilation. Spleen: See below Adrenal glands: Normal. No mass. Kidneys and ureters: Left kidney irregular perinephric hyperdense material extending into the left deep pelvis, may reflect blood products and are of uncertain etiology, hyperdense infected fluid may also be a consideration, a CT with intravenous contrast could better characterize this. Additionally the material is seen to extend somewhat superiorly about the spleen, a CT with contrast could also evaluate for possible splenic injury in bleeding. Stomach and bowel: Unremarkable. No obstruction. No mucosal thickening. Appendix: No evidence of appendicitis. Intraperitoneal space: Mild perihepatic ascites. Vasculature: Aorto bi-iliac graft seen with an excluded aneurysm sac, consider further evaluation with CT with contrast to further evaluate this if there is a potential for a leaking aneurysm and a possible source of the hyperdense material seen in the abdomen pelvis. Lymph nodes: Unremarkable. No enlarged lymph nodes. Urinary bladder: Asymmetric left urinary bladder 10 mm in thickness, may reflect an infectious process, and underlying mass is not excluded, consider further evaluation with cystoscopy. Reproductive: Unremarkable as visualized. Bones/joints: Unremarkable. No acute fracture. Soft tissues: Unremarkable. CT/CT kidney stone [id number] IMPRESSION: 1. Left kidney irregular perinephric hyperdense material extending into the left deep pelvis, may reflect blood products and are of uncertain etiology, hyperdense infected fluid may also be a consideration, a CT with intravenous contrast could better characterize this. Additionally the material is seen to extend somewhat superiorly about the spleen, a CT with contrast could also evaluate for possible splenic injury in bleeding. 2. Aorto bi-iliac graft seen with an excluded aneurysm sac, consider further evaluation with CT with contrast to further evaluate this if there is a potential for a leaking aneurysm and a possible source of the hyperdense material seen in the abdomen pelvis. 3. Asymmetric left urinary bladder 10 mm in thickness, may reflect an infectious process, and underlying mass is not excluded, consider further evaluation with cystoscopy. 4. Small left pleural effusion. 5. Emphysematous changes. 6. Left lower lobe atelectasis versus infiltrate. 7. Coronary artery atherosclerotic calcifications. 8. Mild perihepatic ascites. 9. Cholelithiasis. COMMENTS: Consistent with the [place] [employer]'s Incidental Findings Committee white paper (J Am Sherrell Radiol 2018): Any incidental renal lesion less than 1 cm or classified as too small to characterize, or any incidental cystic renal lesion characterized as simple-appearing, is likely benign. No follow-up imaging is recommended for these lesions per consensus recommendations based on imaging criteria.
--- NOTE | 2023-09-27 00:19 | ECG_ITS ---
[facility] Test Date: 2023-09-27 Pat Name: Jerson Hatch Department: Room: Gender: Male Functional Analyst: : 1945 Requested By: Lex Call Order Number: [id number] Maricruz MD: Clive Freitas M.D. Measurements Intervals [place] Rate: 90 P: 0 NM: 0 QRS: 57 QRSD: 77 T: 256 QT: 353 QTc: 434 Interpretive Statements ATRIAL FIBRILLATION VOLTAGE CRITERIA FOR LVH [MEETS CRITERIA IN ONE OF: R(aVL), S(V1), R(V5), R(V5/V6)+S(V1)] ST DEVIATION AND MODERATE T-WAVE ABNORMALITY, CONSIDER LATERAL ISCHEMIA [-0.1+ mV T-WAVE IN I/aVL/V5/V6] Compared to ECG 09/26/2023 22:27:07 Possible ischemia now present Ventricular premature complex(es) no longer present Aberrant conduction of supraventricular beat(s) no longer present T-wave abnormality still present Electronically Signed On 09-27-2023 7:59:37 PERIOPERATIVE NURSE by Clive Freitas M.D. [id number]
[2023-09-27 00:25] LABS: Adenovirus Not Detected (NOT DETECT); Chlamydia Pneumoniae Not Detected (NOT DETECT); Coronavirus 229E,HKU1,NL63,OC4 Not Detected (NOT DETECT); Human Metapneumovirus Not Detected (NOT DETECT); Human Rhinovirus/Enterovirus Not Detected (NOT DETECT); Influenza A Not Detected (NOT DETECT); Influenza A H1 Not Detected (NOT DETECT); Influenza A H1-2009 Not Detected (NOT DETECT); Influenza A H3 Not Detected (NOT DETECT); Influenza B Not Detected (NOT DETECT); Mycoplasma Pneumoniae Not Detected (NOT DETECT); Parainfluenza Virus Type 1 Not Detected (NOT DETECT); Parainfluenza Virus Type 2 Not Detected (NOT DETECT); Parainfluenza Virus Type 3 Not Detected (NOT DETECT); Parainfluenza Virus Type 4 Not Detected (NOT DETECT); Respiratory Syncytial Virus A Not Detected (NOT DETECT); Respiratory Syncytial Virus B Not Detected (NOT DETECT); SARS-COV-2 Not Detected (NOT DETECT)
[2023-09-27 00:48] LABS: Reflex Lactate Order REFLEX LACTIC ORDERD
--- NOTE | 2023-09-27 00:53 | CTR_ITS ---
PROCEDURE INFORMATION: Exam: CT Abdomen And Pelvis With Contrast Exam date and time: 09/27/2023 1:12 AM Age: 77 years old Clinical indication: Prior surgery; Surgery date: 6+ months; Surgery type: Aaa graft. Spinal stimultor. Patient HX: Concern for fluid vs blood products on non con CT. ; Additional info: Abd pain, fluid vs hemorrhage on non-contrast CT TECHNIQUE: Imaging protocol: Computed tomography of the abdomen and pelvis with contrast. Radiation optimization: All CT scans at this facility use at least one of these dose optimization techniques: automated exposure control; mA and/or kV adjustment per patient size (includes targeted exams where dose is matched to clinical indication); or iterative reconstruction. Contrast material: OMNI 350; Contrast volume: 100 ml; Contrast route: INTRAVENOUS (IV); COMPARISON: CT kidney stone [id number] 09/27/2023 12:27 AM RADIATION DOSE METRICS: Total DLP (mGy-cm): 882.87 FINDINGS: Lungs: Emphysematous changes. Pleural spaces: Small left pleural effusion. Heart: Cardiomegaly. Coronary arteries: Coronary artery atherosclerotic calcifications. Liver: Right hepatic lobe sub cm cyst. Hepatic steatosis. Gallbladder and bile ducts: Cholelithiasis. Pancreas: Normal. No ductal dilation. Spleen: See Kidneys and ureters finding. Adrenal glands: Normal. No mass. Kidneys and ureters: Hyperdense material is seen about the left kidney seen extending superiorly to the spleen and inferiorly to the left pelvis of uncertain etiology, suggestive of blood products. Negative for active contrast extravasation seen from the spleen or kidney to suggest a source of blood products. Stomach and bowel: Constipation. Appendix: No evidence of appendicitis. Intraperitoneal space: Small amount of perihepatic fluid. Vasculature: Aorta bi-iliac graft seen with contrast in the excluded aneurysm sac along while style although left-sided without definite contrast extravasation seen to indicate leakage. Additionally a dissection flap is seen extending superiorly off the field of view into the upper abdominal and lower thoracic aorta. Lymph nodes: Unremarkable. No enlarged lymph nodes. Urinary bladder: Urinary bladder wall thickening, asymmetric on the left side, consider correlation with cystoscopy to evaluate for possible mass, infection may also be a consideration. Reproductive: Unremarkable as visualized. Bones/joints: Unremarkable. No acute fracture. Soft tissues: Unremarkable. CT/CT abdomen pelvis w con* [id number] IMPRESSION: 1. Hyperdense material is seen about the left kidney seen extending superiorly to the spleen and inferiorly to the left pelvis of uncertain etiology, suggestive of blood products. Negative for active contrast extravasation seen from the spleen or kidney to suggest a source of blood products. 2. Aorta bi-iliac graft seen with contrast in the excluded aneurysm sac along while style although left-sided without definite contrast extravasation seen to indicate leakage. Additionally a dissection flap is seen extending superiorly off the field of view into the upper abdominal and lower thoracic aorta, finding is likely chronic. 3. Right hepatic lobe sub cm cyst 4. Urinary bladder wall thickening, asymmetric on the left side, consider correlation with cystoscopy to evaluate for possible mass, infection may also be a consideration. 5. Constipation. 6. Small left pleural effusion. 7. Emphysematous changes. 8. Cardiomegaly. 9. Coronary artery atherosclerotic calcifications. 10. Hepatic steatosis. 11. Small amount of perihepatic fluid. 12. Cholelithiasis. COMMENTS: Consistent with the [employer]'s Incidental Findings Committee white paper (J Am Sherrell [employer]iol 2018): Any incidental renal lesion less than 1 cm or classified as too small to characterize, or any incidental cystic renal lesion characterized as simple-appearing, is likely benign. No follow-up imaging is recommended for these lesions per consensus recommendations based on imaging criteria.
[2023-09-27] MEDS: vancomycin 1,000 MG in sodium chloride 0.9% 250 ML 250 MG IV (00:54)
[2023-09-27] MEDS: iohexol 350 mg/mL 500 mL Btl (per mL) IV ×2 (01:16→03:34)
[2023-09-27 01:37] LABS: Add Urine Microscopic? YES
[2023-09-27 01:41] LABS: Add Urine Culture? Yes; Amorphous Sediment Urine 2+ /hpf; Bacteria Urine 2+ /hpf; Bilirubin Urine 1+ (Negative); Blood Urine 2+ (Negative); Fine Granular Casts Urine 0-4 /lpf; Glucose Urine UA 1+ (Normal); Hyaline Casts Urine 0-4 /lpf; Ketones Urine 1+ (Negative); Leukocyte Esterase Urine Negative (Negative); Mucus Urine 1+ /hpf; Nitrate Urine Negative (Negative); Protein Urine 3+ (Negative); RBC Urine 25-40 /hpf (0-2); Specific Gravity, Urine 1.025 (1.005-1.030); Squamous Epithelial Cell Urine 0-4 /hpf (0-5); Urine Appearance Cloudy (CLEAR); Urine Color Amber (Yellow); Urobilinogen Urine Norm (Negative); WBC Urine 15-25 /hpf (0-5); pH Urine 5 (5-7)
[2023-09-27 03:01] LABS: Lactic Acid level (Lactate) 2.3 mmol/L (0.5-2.2)
--- NOTE | 2023-09-27 03:08 | CTR_ITS ---
PROCEDURE INFORMATION: Exam: CTA Chest With Contrast Exam date and time: 09/27/2023 3:25 AM Age: 77 years old Clinical indication: Abnormal findings; Prior surgery; Surgery date: 6+ months; Surgery type: Open heart. Spinal stimulator; Patient HX: Dissection flap to distal thoracic descending aorta noted on contrast abd CT. ; Additional info: SOB. TECHNIQUE: Imaging protocol: Computed tomographic angiography of the chest with contrast. Exam focused on the arteries. 3D rendering (Not supervised by radiologist): MIP and/or 3D reconstructed images were created by the technologist. Radiation optimization: All CT scans at this facility use at least one of these dose optimization techniques: automated exposure control; mA and/or kV adjustment per patient size (includes targeted exams where dose is matched to clinical indication); or iterative reconstruction. Contrast material: OMNI 350; Contrast volume: 100 ml; Contrast route: INTRAVENOUS (IV); COMPARISON: CR (CHEST, ) 09/26/2023 10:27 PM RADIATION DOSE METRICS: Total DLP (mGy-cm): 754.99 FINDINGS: Pulmonary arteries: No pulmonary emboli. Aorta: Type B aortic dissection. There is an endoleak filling the false lumen and compressing the true lumen of the thoracic aorta. Hyperdense fluid in the left upper quadrant region with an area of abnormality noted on the prior CT abdomen pelvis on axial image 35 suggestive of a ruptured aortic aneurysm with endoleak and acute hemorrhage. 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 Lungs: Emphysematous changes of the lungs. Patchy left basilar atelectasis. Pleural spaces: Small left pleural effusion. Heart: Unremarkable. No cardiomegaly. No pericardial effusion. Coronary arteries: There are coronary artery calcifications. Lymph nodes: Unremarkable. No enlarged lymph nodes. Gallbladder and bile ducts: Small stones noted in the gallbladder. Bones/joints: Previous median sternotomy. Chronic left rib fractures. Soft tissues: Unremarkable. CT/CT angio chest [id number] IMPRESSION: 1. Type B aortic dissection. There is an endoleak filling the false lumen and compressing the true lumen of the thoracic aorta. 2. Hyperdense fluid in the left upper quadrant region with an area of abnormality noted on the prior CT abdomen pelvis on axial image 35 suggestive of a ruptured aortic aneurysm with endoleak and acute hemorrhage in the left upper quadrant/retroperitoneal region, please see prior CT abdomen pelvis study. 3. 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 COMMENTS: The presence of pulmonary emphysema on CT is an independent risk factor for lung cancer. In the absence of a history or active diagnosis of lung cancer, it is recommended that this patient with emphysema be evaluated for enrollment in a low dose CT lung cancer screening program. THIS REPORT CONTAINS FINDINGS THAT MAY BE CRITICAL TO PATIENT CARE. The findings were verbally communicated via telephone conference with Dr. Ward at 419 AM [facility] on 09/27/2023. The findings were acknowledged and understood.
[2023-09-27] MEDS: labetalol 5 mg/mL SDV 20mL 10 MG IVP ×2 (03:52→04:36)
--- NOTE | 2023-09-27 05:37 | PC.NURSE ---
ATTEMPTED TO GET [facility] OF BRANDY AND GRANDDAUGHTER SARAI TWICE WITH NO RESPONSE. THIS NURSE AND CHARGE NURSE LEFT VOICEMAILS FOR AND GRANDDAUGHTER.
--- NOTE | 2023-09-27 05:45 | PC.NURSE ---
DR MEADOWS GAVE VERBAL ORDERS AT THIS TIME TO STOP CARDIZEM DRIP. DRIP STOPPED AT THIS TIME.
--- NOTE | 2023-09-27 06:13 | PC.NURSE ---
[facility]ANDY CALLED ER BACK AT THIS TIME. DR MEADOWS GAVE UPDATE ON PATIENT STATUS AND NEED TO TRANSFER.
[2023-09-27 06:15] LABS: Troponin 5 6HR 73.91 ng/L (0-15)
[2023-09-27 06:16] LABS: Troponin 5 6HR Delta -7.09 ng/L (0-12)
--- NOTE | 2023-09-27 06:34 | PC.NURSE ---
REPORT CALLED TO BARRETT BARROW RN AT [facility] AT THIS TIME. ALL QUESTIONS AND CONCERNS ADDRESSED AT TIME OF REPORT.
--- NOTE | 2023-09-27 07:30 | PC.NURSE ---
med flight arrived for transport
== END 2023-09-27 07:48 | disposition short-term general hospital (02) ==
PROVIDERS: Emergency Provider Emergency Medicine; PCP Family Medicine
DX: I71.019 Dissection of thoracic aorta, unspecified (principal); I71.30 Abdominal aortic aneurysm, ruptured, unspecified; Z11.52 Encounter for screening for COVID-19; Z87.891 Personal history of nicotine dependence; I11.0 Hypertensive heart disease with heart failure; I50.9 Heart failure, unspecified; E11.9 Type 2 diabetes mellitus without complications; J44.9 Chronic obstructive pulmonary disease, unspecified; I25.10 Atherosclerotic heart disease of native coronary artery without angina pectoris; E78.2 Mixed hyperlipidemia
CPT/HCPCS: 36415; 71045; 71275; 74176; 74177; 80053; 80162; 81001; 83605; 83735; 83880; 84100; 84484; 85025; 85610; 85730; 86140; 87040; 87086; 87486; 87581; 87633; 93005; 96365; 96366; 96367; 96375; 96376; 99291; J2543; J3370; J3490; J7030; J7050; Q9967